=== PATIENT | female | born 1965 | race Caucasian/White ===

== ENCOUNTER 2020-01-07 07:59 | Outpatient (REF) | payer BC, SELFPAY ==
--- NOTE | 2020-01-07 | US_ITS ---
EXAMINATION: US RETROPERITONEAL LIMITED (RENAL ONLY) CLINICAL INFORMATION: Kidney stones. COMPARISON: 05/02/2019 TECHNIQUE: Renal ultrasound. FINDINGS: RIGHT KIDNEY: 12.3 x 5.4 x 6.2 cm (SAG x AP x TRV). The kidney is normal in size, contour, and echogenicity. Renal cortical thickness is normal. No calculi or focal parenchymal lesions. No hydronephrosis. LEFT KIDNEY: 12.4 x 4.1 x 4.4 cm (SAG x AP x TRV). The kidney is normal in size, contour, and echogenicity. Renal cortical thickness is normal. There is a lower pole 3 x 2 x 3 mm nonobstructing calculus. No focal parenchymal lesions. No hydronephrosis. US/US renal BI IMPRESSION: Left renal 3 mm nonobstructing calculus. No right renal calculi. No hydronephrosis.
== END 2020-01-07 08:00 | disposition home or self-care (01) ==
LOC: HO.HMGCX 07:59
PROVIDERS: PCP Internal Medicine; Visit Provider Urology
DX: N20.0 Calculus of kidney (principal)
CPT/HCPCS: 76775

== ENCOUNTER 2020-01-27 06:04 | Outpatient (REF) | payer BC, SELFPAY ==
[2020-01-27 11:51] LABS: MANUAL DIFF FLAG NO
[2020-01-27 11:58] LABS: Basophils Percent Auto 0.4 % (0-2); Eosinophils Absolute Auto 0.2 X10*3/uL (0.0-0.4); Eosinophils Percent Auto 2.5 % (0-4); Hematocrit 43.9 % (37-47); Hemoglobin 14.4 g/dl (12.0-16.0); Imm Gran Abs Auto 0.02 X10*3/uL (0.00-0.03); Imm Gran Pct Auto 0.3 % (0.0-0.4); Lymphocytes Absolute Auto 2.2 X10*3/uL (1.2-4.9); Lymphocytes Percent Auto 28.4 % (20-40); Mean Corpuscular HGB Conc 32.8 g/dl (31.0-35.0); Mean Corpuscular Hemoglobin 28.5 pg (27.0-33.0); Mean Corpuscular Volume 86.9 fL (80-98); Mean Platelet Volume 10.1 fL (9.4-12.3); Monocytes Absolute Auto 0.5 X10*3/uL (0.1-1.2); Monocytes Percent Auto 7.1 % (2-11); Neutrophils Absolute Auto 4.7 X10*3/uL (2.0-8.3); Neutrophils Percent Auto 61.3 % (45-73); Platelet Count 357 X10*3/uL (160-400); Red Blood Count 5.05 X10*6/uL (4.20-5.50); Red Cell Distribution Width 13.7 % (11.0-16.0); White Blood Count 7.6 X10*3/uL (4.8-10.8)
[2020-01-27 12:25] LABS: Alanine Aminotransferase 48 U/L (0-31); Albumin Level 4.1 g/dL (3.5-5.0); Alkaline Phosphatase 155 U/L (39-117); Anion Gap 15 (12-20); Aspartate Amino Transferase 36 U/L (5-31); Bilirubin Total 0.5 mg/dL (0.0-1.0); Blood Urea Nitrogen 19 mg/dL (9-16); Calcium 9.1 mg/dL (8.4-10.2); Carbon Dioxide 25 mmol/L (22-29); Chloride 107 mmol/L (96-108); Cholesterol 222 mg/dL; Estimated Glomerular Filt Rate > 60; Glucose Fasting 105 mg/dL (60-99); HDL Cholesterol 34 mg/dL; LDL Cholesterol Calculated 146 mg/dl; Potassium 4.6 mmol/l (3.3-5.1); Sodium 142 mmol/L (135-145); Total Protein 7.1 g/dL (6.5-8.0); Triglycerides 212 mg/dL
[2020-01-27 12:49] LABS: TSH reflex Free T4 3.56 mIU/mL (0.32-4.0)
== END 2020-01-27 06:05 | disposition home or self-care (01) ==
LOC: HO.HMGCLDS 06:04
PROVIDERS: PCP Internal Medicine; Visit Provider Internal Medicine
DX: F33.9 Major depressive disorder, recurrent, unspecified (principal); E78.89 Other lipoprotein metabolism disorders; K21.9 Gastro-esophageal reflux disease without esophagitis; R94.5 Abnormal results of liver function studies
CPT/HCPCS: 36415; 80053; 80061; 84443; 85025

== ENCOUNTER → 2020-02-23 09:17 | Outpatient (BNVA) | payer BC, SELFPAY | PROVIDERS: PCP Internal Medicine; Visit Provider Urology | DX: Z13.89 Encounter for screening for other disorder (principal) ==

== ENCOUNTER 2020-04-14 08:12 | Outpatient (REF) | payer BC, SELFPAY ==
--- NOTE | ~2020-04-14 | US_ITS ---
EXAMINATION: US ABDOMEN COMPLETE CLINICAL INFORMATION: Right upper quadrant pain. COMPARISON: Renal ultrasound 01/07/2020 and 05/02/2019. KUB 04/16/2019 and 01/15/2019. TECHNIQUE: Real-time imaging of the abdominal viscera. FINDINGS: PANCREAS: Normal. ABDOMINAL AORTA: The proximal, mid, and distal segments are normal in caliber. INFERIOR VENA CAVA: Visualized portions are normal. LIVER: Liver echotexture is increased probably representing fatty infiltration. There is a hypoechoic area adjacent to the gallbladder, characteristic location of focal fatty sparing. No other focal liver lesion is seen. The liver is normal in size and contour. There is no biliary duct dilatation. GALLBLADDER: Normal. The gallbladder is physiologically distended without evidence of stones, sludge, polyps, wall thickening or pericholecystic fluid. COMMON BILE DUCT: Normal in caliber measuring 0.4 cm in diameter. RIGHT KIDNEY: Normal. No hydronephrosis. No renal calculi or focal parenchymal lesions. The kidney measures 11.3 cm in maximum dimension. LEFT KIDNEY: Normal. No hydronephrosis. No renal calculi or focal parenchymal lesions. The kidney measures 11.6 cm in maximum dimension. The previously identified left renal stones on previous exams not appreciated. SPLEEN: Normal. The spleen measures 11.0 cm in maximum dimension. FREE FLUID: None. US/US abdomen complete IMPRESSION: Echogenic liver probably representing fatty infiltration. Otherwise unremarkable exam.
== END 2020-04-14 08:13 | disposition home or self-care (01) ==
LOC: HO.HMGCX 08:12
PROVIDERS: PCP Internal Medicine; Visit Provider Internal Medicine
DX: R10.11 Right upper quadrant pain (principal); K21.9 Gastro-esophageal reflux disease without esophagitis; R79.89 Other specified abnormal findings of blood chemistry
CPT/HCPCS: 76700

== ENCOUNTER 2020-08-25 09:13 | Outpatient (REF) | payer BC, SELFPAY ==
[2020-08-25 11:15] LABS: MANUAL DIFF FLAG NO
[2020-08-25 11:43] LABS: Basophils Percent Auto 0.4 % (0-2); Eosinophils Absolute Auto 0.2 X10*3/uL (0.0-0.4); Hematocrit 44.8 % (37-47); Hemoglobin 14.8 g/dl (12.0-16.0); Imm Gran Abs Auto 0.01 X10*3/uL (0.00-0.03); Imm Gran Pct Auto 0.1 % (0.0-0.4); Lymphocytes Absolute Auto 2.1 X10*3/uL (1.2-4.9); Lymphocytes Percent Auto 25.2 % (20-40); Mean Corpuscular Hemoglobin 28.2 pg (27.0-33.0); Mean Corpuscular Volume 85.3 fL (80-98); Mean Platelet Volume 9.9 fL (9.4-12.3); Monocytes Absolute Auto 0.7 X10*3/uL (0.1-1.2); Neutrophils Absolute Auto 5.3 X10*3/uL (2.0-8.3); Neutrophils Percent Auto 64.3 % (45-73); Platelet Count 413 X10*3/uL (160-400); Red Blood Count 5.25 X10*6/uL (4.20-5.50); Red Cell Distribution Width 13.2 % (11.0-16.0); White Blood Count 8.2 X10*3/uL (4.8-10.8)
[2020-08-25 11:51] LABS: Alanine Aminotransferase 34 U/L (0-31); Albumin Level 4.4 g/dL (3.5-5.0); Alkaline Phosphatase 183 U/L (39-117); Anion Gap 13 (12-20); Aspartate Amino Transferase 29 U/L (5-31); Bilirubin Total 0.3 mg/dL (0.0-1.0); Blood Urea Nitrogen 18 mg/dL (9-16); Calcium 9.9 mg/dL (8.4-10.2); Carbon Dioxide 25 mmol/L (22-29); Chloride 108 mmol/L (96-108); Estimated Glomerular Filt Rate > 60; Glucose Random 110 mg/dL (60-115); Potassium 4.9 mmol/L (3.3-5.1); Sodium 141 mmol/L (135-145); Total Protein 7.5 g/dL (6.5-8.0)
[2020-08-25 12:17] LABS: TSH reflex Free T4 1.72 uIU/mL (0.32-4.0)
[2020-08-25 13:05] LABS: Estimated Average Glucose 117 mg/dL; Hemoglobin A1c % 5.7 %
== END 2020-08-25 09:14 | disposition home or self-care (01) ==
LOC: HO.HMGCLDS 09:13
PROVIDERS: PCP Internal Medicine; Visit Provider Internal Medicine
DX: F33.9 Major depressive disorder, recurrent, unspecified (principal); I10 Essential (primary) hypertension; R73.03 Prediabetes; R79.89 Other specified abnormal findings of blood chemistry; K21.9 Gastro-esophageal reflux disease without esophagitis
CPT/HCPCS: 36415; 80053; 83036; 84443; 85025

== ENCOUNTER 2020-09-29 07:24 | Outpatient (REF) | payer BC, SELFPAY ==
--- NOTE | ~2020-09-29 | MM_ITS ---
EXAMINATION: MM SCREENING DIGITAL BREAST TOMOSYNTHESIS, BILATERAL CLINICAL INFORMATION: Screening. Asymptomatic. The lifetime risk of breast cancer based on the Tyrer-Cuzick Model is 10%. COMPARISON: Mammography: 09/23/2019, 01/11/2019, 03/17/2017 TECHNIQUE: Digital breast tomosynthesis is performed in both the craniocaudal and mediolateral oblique views along with computer-aided detection (CAD). Synthesized 2D images are generated from the tomosynthesis. FINDINGS: There are scattered areas of fibroglandular density (ACR BI-RADS breast composition Category b). There are no significant masses, abnormal calcifications, or other abnormalities. Parenchymal tissue composition borders on heterogeneously dense. Parenchymal pattern is similar to prior exams. No developing density. No significant changes. MM/MM tomosynthesis screening BI IMPRESSION: No mammographic evidence of malignancy. ASSESSMENT: BI-RADS 1: Negative RECOMMENDATION: Routine annual mammography screening. This patient's information was entered into a reminder system with a target due date for their next mammogram.
== END 2020-09-29 07:25 | disposition home or self-care (01) ==
LOC: HO.MAMMO 07:24
PROVIDERS: Visit Provider Internal Medicine
DX: Z12.31 Encounter for screening mammogram for malignant neoplasm of breast (principal)
CPT/HCPCS: 77063; 77067

== ENCOUNTER 2021-04-20 08:46 | Outpatient (REF) | payer BC, SELFPAY ==
[2021-04-20 11:33] LABS: Alanine Aminotransferase 21 U/L (0-31); Albumin Level 4.2 g/dL (3.5-5.0); Alkaline Phosphatase 148 U/L (39-117); Anion Gap 15 (12-20); Aspartate Amino Transferase 22 U/L (5-31); Bilirubin Total 0.4 mg/dL (0.0-1.0); Blood Urea Nitrogen 12 mg/dL (9-16); Carbon Dioxide 23 mmol/L (22-29); Chloride 106 mmol/L (96-108); Estimated Glomerular Filt Rate > 60; Glucose Random 99 mg/dL (60-115); Potassium 4.6 mmol/L (3.3-5.1); Sodium 139 mmol/L (135-145); Total Protein 7.2 g/dL (6.5-8.0)
== END 2021-04-20 08:47 | disposition home or self-care (01) ==
LOC: HO.HMGCLDS 08:46
PROVIDERS: Visit Provider Internal Medicine
DX: F33.9 Major depressive disorder, recurrent, unspecified (principal); I10 Essential (primary) hypertension; K21.9 Gastro-esophageal reflux disease without esophagitis; R73.03 Prediabetes; R79.89 Other specified abnormal findings of blood chemistry; E66.09 Other obesity due to excess calories
CPT/HCPCS: 36415; 80053

== ENCOUNTER 2021-05-04 14:13 | Outpatient (REF) | payer BC, SELFPAY ==
[2021-05-09 14:17] LABS: HPV mRNA E6/E7 rflx Not Detected (Not Detected)
== END 2021-05-04 14:14 | disposition home or self-care (01) ==
LOC: HO.LAB 14:13
PROVIDERS: PCP Internal Medicine; Visit Provider Advanced Practice Midwife
DX: Z01.411 Encounter for gynecological examination (general) (routine) with abnormal findings (principal); Z11.51 Encounter for screening for human papillomavirus (HPV); N95.1 Menopausal and female climacteric states
CPT/HCPCS: 87624; 88142

== ENCOUNTER 2021-10-03 07:21 | Outpatient (REF) | payer BC, SELFPAY ==
--- NOTE | ~2021-10-03 | MM_ITS ---
EXAMINATION: MM SCREENING DIGITAL BREAST TOMOSYNTHESIS, BILATERAL CLINICAL INFORMATION: Screening. Asymptomatic. The lifetime risk of breast cancer based on the Tyrer-Cuzick Model is 10%. COMPARISON: Mammography: 09/29/2020, 09/23/2019, 06/11/2018, 03/03/2017 TECHNIQUE: Digital breast tomosynthesis is performed in both the craniocaudal and mediolateral oblique views along with computer-aided detection (CAD). Synthesized 2D images are generated from the tomosynthesis. FINDINGS: There are scattered areas of fibroglandular density (ACR BI-RADS breast composition Category b). There are no significant masses, abnormal calcifications, or other abnormalities. No developing density or architectural abnormality. Breast tissue composition borders on heterogeneously dense. The axilla are unremarkable. No significant changes. MM/MM tomosynthesis screening BI IMPRESSION: No mammographic evidence of malignancy. ASSESSMENT: BI-RADS 1: Negative RECOMMENDATION: Routine annual mammography screening. This patient's information was entered into a reminder system with a target due date for their next mammogram.
== END 2021-10-03 07:22 | disposition home or self-care (01) ==
LOC: HO.MAMMO 07:21
PROVIDERS: PCP Internal Medicine; Visit Provider Internal Medicine
DX: Z12.31 Encounter for screening mammogram for malignant neoplasm of breast (principal)
CPT/HCPCS: 77063; 77067

== ENCOUNTER 2021-10-06 06:00 | Outpatient (REF) | payer BC, SELFPAY ==
[2021-10-06 11:33] LABS: MANUAL DIFF FLAG NO
[2021-10-06 11:46] LABS: Basophils Absolute Auto 0.1 X10*3/uL (0.0-0.2); Basophils Percent Auto 0.9 % (0-2); Eosinophils Absolute Auto 0.4 X10*3/uL (0.0-0.4); Eosinophils Percent Auto 8.1 % (0-4); Hematocrit 40.8 % (37.0-47.0); Hemoglobin 13.3 g/dl (12.0-16.0); Imm Gran Abs Auto 0.01 X10*3/uL (0.00-0.03); Imm Gran Pct Auto 0.2 % (0.0-0.4); Lymphocytes Absolute Auto 1.4 X10*3/uL (1.2-4.9); Lymphocytes Percent Auto 25.2 % (20-40); Mean Corpuscular HGB Conc 32.6 g/dl (31.0-35.0); Mean Corpuscular Hemoglobin 28.4 pg (27.0-33.0); Mean Corpuscular Volume 87.2 fL (80.0-98.0); Mean Platelet Volume 10.4 fL (9.4-12.3); Monocytes Absolute Auto 0.6 X10*3/uL (0.1-1.2); Monocytes Percent Auto 10.3 % (2-11); Neutrophils Percent Auto 55.3 % (45-73); Platelet Count 383 X10*3/uL (160-400); Red Blood Count 4.68 X10*6/uL (4.20-5.50); Red Cell Distribution Width 15.2 % (11.0-16.0); White Blood Count 5.4 X10*3/uL (4.8-10.8)
[2021-10-06 11:51] LABS: Appearance Urine CLOUDY; Color Urine YELLOW; Glucose Urine UA NEG (NEG); Leukocyte Esterase Urine TRACE (NEG); Nitrite Urine NEG (NEG); Specific Gravity - Urine 1.025 (1.005-1.025); Urine Blood NEG (NEG); Urine Ketones 5 MG/DL (NEG); Urine Protein NEG (NEG-TRACE)
[2021-10-06 12:11] LABS: Amorphous Sediment Urine 4+ /LPF; Squamous Epithelial Cell Urine TRACE /LPF
[2021-10-06 12:13] LABS: Calcium Oxalate Crystals Urine TRACE /LPF; Uric Acid Crystals Urine 1+ /LPF
[2021-10-06 12:14] LABS: RBC Urine 0 /HPF (0); WBC Urine 0-2 /HPF (0-4)
[2021-10-06 12:34] LABS: Alanine Aminotransferase 22 U/L (0-31); Albumin Level 3.9 g/dL (3.5-5.0); Alkaline Phosphatase 94 U/L (39-117); Anion Gap 15 (12-20); Aspartate Amino Transferase 26 U/L (5-31); Bilirubin Total 0.4 mg/dL (0.0-1.0); Blood Urea Nitrogen 10 mg/dL (9-16); Calcium 9.5 mg/dL (8.4-10.2); Carbon Dioxide 22 mmol/L (22-29); Chloride 110 mmol/L (96-108); Cholesterol 194 mg/dL; Estimated Glomerular Filt Rate > 60; Glucose Fasting 96 mg/dL (60-99); HDL Cholesterol 35 mg/dL; LDL Cholesterol Calculated 136 mg/dl; Potassium 4.4 mmol/L (3.3-5.1); Sodium 143 mmol/L (135-145); Total Protein 6.2 g/dL (6.5-8.0); Triglycerides 115 mg/dL
== END 2021-10-06 06:01 | disposition home or self-care (01) ==
LOC: HO.HMGCLDS 06:00
PROVIDERS: PCP Internal Medicine; Visit Provider Internal Medicine
DX: Z00.01 Encounter for general adult medical examination with abnormal findings (principal); F33.9 Major depressive disorder, recurrent, unspecified; R79.89 Other specified abnormal findings of blood chemistry
CPT/HCPCS: 36415; 80053; 80061; 81001; 85025

== ENCOUNTER → 2022-06-13 07:57 | Outpatient (BNVA) | payer BC, SELFPAY | PROVIDERS: PCP Internal Medicine; Visit Provider Advanced Practice Midwife | DX: Z13.89 Encounter for screening for other disorder (principal) ==

== ENCOUNTER 2023-01-17 14:19 | Outpatient (AMB) | payer BC, SELFPAY ==
--- NOTE | 2023-01-17 14:26 | A.OFFPC_ITS ---
Vital Signs 01/17/23 14:27 Height 5 ft 7 in Weight 165 lb 8 oz BMI 25.9 BP 110/88 Blood Pressure Location Rt brachial Position Sitting Pulse 79 Pulse Source Pulse Oximeter Pulse Oximetry (%) 97 Oxygen Delivery Method Room Air Intake Visit Reasons: Hip Replacement Surgery F/U Allergies No Known Allergies [No Known Allergies*] Allergy (Verified 01/17/23 14:27) seasonal allergies Allergy (Unknown, Uncoded 04/20/21 08:17) unknown Medication List - Last Reconciled 01/17/23 by Hailey Moran MD albuterol sulfate 90 mcg/actuation 1 puff inhalation citalopram 40 mg PO DAILY 90 days fluocinonide 0.05% mL topical Tobacco use date assessed: 01/17/23 Dental Screening Dental Screen Date: 01/17/23 Did you have a dental visit in the last 12 months?: Yes Did you have a dental problem in the last 6 months where you did not have access to dental care?: No Was dental information given to patient?: Patient has dentist HPI Hip Replacement Surgery F/U HPI Details Status post left hip replacement July 2022 and right hip replacement September [address] Michael Marion Patient have history of bilateral knee pain, bilateral shoulder pain as well History of anxiety and major depression , taking citalopram 40 mg History of impaired fasting sugar, last hemoglobin A1c was 5.1 in-hospital Environmental allergies, asthma controlled, rarely require rescue inhaler Patient had sleep apnea, resolved since she has lost weight GERD, diet-controlled Patient is doing well after the hip surgery She will return in May for physical exam [facility] Medical History Cataract Foreign body of right index finger Abdominal pain, RUQ LFT elevation Prediabetes Renal stone Ureteral stone Kidney stones Surgical History H/O eye surgery History of tonsillectomy Family History Father No problems noted. Mother No problems noted. Brother No problems noted. Brother No problems noted. Daughter No problems noted. Unknown Adopted Housing: House Patient Tobacco Use Status: Former Tobacco user Quit Date: 1989 Tobacco use type: Cigarette Cigarette Packs Per Day: 1 Years Smoked: 10 Packs Per Year: 10 e-Cigarette/Vaping Use: Never Used Current occupational status: employed Sexual orientation: Straight/Heterosexual Gender identity: Female Cognitive needs: No Hearing needs: No Vision needs: No Questionnaire Thrive Questionnaire Date Thrive assessed: 10/04/21 AUDIT C Alcohol Use Questionnaire (AUDIT-C) 1. How often do you have a drink containing alcohol?: Never 3. How often do you have six or more drinks on one occasion?: Never Total Score: 0 Score Reviewed/Action Taken: Yes NANETTE-7 AMB Questionnaire NANETTE-7 Date NANETTE - 7 assessed: 10/04/21 Source: Developed by Drs. Julian Pal, Wanda Valenzuela, Donnie Ibanez and colleagues, with an educational arvin from [employer]. Review of Systems Const Denies chills and Denies fever(s) ENT Denies epistaxis and Denies nasal discharge Card Denies chest pain Resp Denies chest congestion, Denies cough and Denies hemoptysis GI Denies diarrhea and Denies nausea Skin/Breast Denies rash Neuro Reports no additional complaints Psych Reports no additional complaints Endo Reports no additional complaints Physical exam (Primary Care) Vital Signs: Last Vital Signs Pulse 79 01/17/23 14:27 BP 110/88 01/17/23 14:27 Pulse Ox 97 01/17/23 14:27 Oxygen Delivery Method Room Air 01/17/23 14:27 BMI result Body Mass Index 25.9 Tobacco/Smoking Status: Tobacco use Status Tobacco use date assessed 01/17/23 01/17/23 14:32 Patient Tobacco Use Status Former Tobacco user 01/17/23 14:32 Tobacco use type Cigarette 01/17/23 14:32 e-Cigarette/Vaping Use Never Used 01/17/23 14:32 Thrive Assessment: Date of Thrive Assessment Date Thrive assessed 10/04/21 01/17/23 14:32 Const General: cooperative, comfortable and no acute distress Orientation/consciousness: patient oriented x3 HENMT Head: Yes normocephalic Eyes General: appearance normal, both eyes and all related structures Neck Neck: Yes supple Resp Effort & Inspection: normal respiratory effort, no cough and no stridor Cardio Rhythm: regular rhythm Heart sounds: S1 normal heart sound present and S2 normal heart sound present Skin General skin exam: turgor normal Neuro General: patient oriented x3, tone normal and moves all extremities Extrem Right lower extremity: no edema Left lower extremity: no edema Assessment and Plan Assessment & Plan (1) Depression, major, recurrent: Code(s): F33.9 - Major depressive disorder, recurrent, unspecified Qualifiers: Active/Remission status: in full remission Qualified Code(s): F33.42 - Major depressive disorder, recurrent, in full remission Plan Status post left hip replacement July 2022 and right hip replacement September [address] Michael Marion Patient have history of bilateral knee pain, bilateral shoulder pain as well History of anxiety and major depression , taking citalopram 40 mg History of impaired fasting sugar, last hemoglobin A1c was 5.1 in-hospital Environmental allergies, asthma controlled, rarely require rescue inhaler Patient had sleep apnea, resolved since she has lost weight GERD, diet-controlled Patient is doing well after the hip surgery She will return in May for physical exam Medications: Refilled citalopram 40 mg PO DAILY 90 tabs 1RF 90 days F33.9 - Major depressive disorder, recurrent, unspecified Coding Level of Care Code Est Pt Level 3 (89032) Diagnoses Recurrent major depressive disorder, in full remission F33.42 Active/Remission status: in full remission
[2023-01-17 14:27] VITALS: BP 110/88; PULSE 79; O2SAT 97; BMI 25.9
== END 2023-01-17 15:14 | disposition home or self-care (01) ==
PROVIDERS: PCP Internal Medicine; Visit Provider Internal Medicine
DX: F33.42 Major depressive disorder, recurrent, in full remission (principal)
CPT/HCPCS: 99213

== ENCOUNTER 2023-04-17 06:20 | Day surgery (SDC) | payer BC, SELFPAY ==
[2023-04-12 07:59] VITALS: BMI 26.2
[2023-04-17 06:53] VITALS: BMI 26.6
[2023-04-17 07:01] VITALS: BP 111/74; PULSE 71; RESP 16; TEMP 36.8; O2SAT 97
[2023-04-17] MEDS: Lactated Ringers 1,000 ML 80 ML IVCONT (07:10)
--- NOTE | 2023-04-17 07:11 | P.CONAN_ITS ---
[facility] Active Problems Active Problems: All Active Problems (Updated 04/12/23 @ 07:58 by Francisca Hsu, RN) Pre-op evaluation (Acute) Encounter for general adult medical examination with abnormal findings (Acute) Obesity due to excess calories (Acute) High blood pressure (Acute) Chronic GERD (Acute) Depression, major, recurrent (Acute) Cataract (Acute) Foreign body of right index finger (Acute) Abdominal pain, RUQ (Acute) LFT elevation (Acute) Prediabetes (Acute) Renal stone (Acute) Past Medical History Medical History (Updated 04/12/23 @ 07:58 by Francisca Hsu, RN) Sleep apnea Anxiety Elevated cholesterol Depression GERD (gastroesophageal reflux disease) Cataract Foreign body of right index finger Abdominal pain, RUQ LFT elevation Prediabetes Renal stone Ureteral stone Kidney stones Family History Family History Father No problems noted. Mother No problems noted. Brother No problems noted. Brother No problems noted. Daughter No problems noted. Unknown Adopted Family history of problems with anesthesia: No Surgical History Surgical History (Updated 04/12/23 @ 07:57 by Francisca Hsu RN) History of right hip replacement History of left hip replacement Hx of shoulder surgery Hx of unilateral salpingectomy History of left oophorectomy H/O eye surgery History of tonsillectomy History of Problems with Anesthesia: No Social History Social History Housing: House Patient Tobacco Use Status: Former Tobacco user Quit Date: 1989 Tobacco use type: Cigarette Cigarette Packs Per Day: 1 Years Smoked: 10 e-Cigarette/Vaping Use: Never Used Use of substances other than those prescribed or required for medical reasons: No Are you DNR?: No Advance Directives: No Advance Directives Information Provided: Yes Current occupational status: employed Sexual orientation: Straight/Heterosexual Gender identity: Female Cognitive needs: No Hearing needs: No Vision needs: No Meds Allergies Allergy/AdvReac Type Severity Reaction Status Date / Time No Known Allergies Allergy Verified 01/17/23 14:27 [No Known Allergies*] seasonal allergies Allergy Unknown unknown Uncoded 04/20/21 08:17 Home Medications Medication Instructions Recorded Confirmed Last Taken Type albuterol sulfate 90 mcg/actuation 1 puff inhalation 02/24/20 01/17/23 Unknown History aerosol inhaler aspirin 81 mg tablet,delayed 81 mg PO DAILY 04/12/23 04/12/23 Unknown History release celecoxib 200 mg capsule 200 mg PO DAILY 04/12/23 04/12/23 Unknown History docusate sodium 100 mg capsule 100 mg PO DAILY PRN Constipation 04/12/23 04/12/23 Unknown History hydrocodone 5 mg-acetaminophen 325 1 tab PO Q6-8H PRN severe pain 04/12/23 04/12/23 Unknown History mg tablet ketoconazole 2 % shampoo 1 appl topical 2XW 04/12/23 04/12/23 Unknown History pantoprazole 40 mg tablet,delayed 40 mg PO DAILY 04/12/23 04/12/23 Unknown History release tramadol 50 mg tablet 50 - 100 mg PO DAILY PRN mild pain 04/12/23 04/12/23 Unknown History Exam Height,Weight and Vital Signs: Height 5 ft 6.5 in Weight 75.92 kg Last Vital Signs Temp 98.2 F 04/17/23 07:01 Pulse 71 04/17/23 07:01 Resp 16 04/17/23 07:01 BP 111/74 04/17/23 07:01 Pulse Ox 97 04/17/23 07:01 O2 Del Method Room Air 04/17/23 07:01 Airway Mallampati Class: II TM Dist: >3cm Neck ROM: Full Assessment and Plan Assessment Anesthesia Assessment: Anesthesia Plan Discussed and Chart Reviewed Final Anesthetic Review Family History of Problems with Anesthesia: No History of Problems with Anesthesia: No NPO: Yes ASA Class: II Final Preanesthetic Review: No Changes in Pt Med Stat, Meds/Allgs Chart Reviewed, Consent Obtained/Reviewed and Anes Risks/Benef Reviewed Patient Risk: Low Procedure Risk: Low Anesthetic Plan Anesthetic Plan: TIVA Disposition: Standard PACU
--- NOTE | 2023-04-17 07:17 | PC.NURSE ---
patient unknown of output of stool color. laid on left lateral side and attemtped to insert an enema and unable to administer the enema. it would not admin. ?fleet enema bottle defective.
--- NOTE | 2023-04-17 07:30 | PC.NURSE ---
left lateral fleet. nessa well. enema performed. dark yellow output. no solids
--- NOTE | 2023-04-17 07:30 | MHC.SHP ---
Pre-Procedural Eval Section A - 24 Hr Update-Section A only Date of Service: 04/17/23 Section B - Complete if H&P > 30 days Chief Complaint: screening Details of Present Illness: see H&P no changes Relevant Family History (Specify if Yes): No Relevant Social History: None Present Medications: see Short Stay Collaborative assessment Medical History: No relevant PMH Allergies: Allergies Allergy/AdvReac Type Severity Reaction Status Date / Time No Known Allergies Allergy Verified 01/17/23 14:27 [No Known Allergies*] seasonal allergies Allergy Unknown unknown Uncoded 04/20/21 08:17 Review of Systems Sugical H&P ROS: Negative: Constitution, Cardiovascular, Respiratory, Neurological, Psychiatric, Hem-Onc, Allergic/Immunologic, Gastrointestinal, Genitourinary, Musculoskeletal, Integumentary, Endocrine and Eyes/Ears/Nose/Throat Exam Surgical H&P Exam: Normal: HEENT, Normal: Heart, Normal: Lungs, Normal: Extremities, Normal: Abdomen, Normal: Skin and Normal: Neurological Plan Diagnosis/Plan: Unchanged I have reviewed the history and physical and performed a pertinent physical examination on my patient. No changes have occurred unless specified. Time Spent With Patient Time: Total time managing care of this patient today ____ minutes.
[2023-04-17 08:07] VITALS: BP 96/50; PULSE 68; RESP 16; TEMP 36.5; O2SAT 98
[2023-04-17 08:22] VITALS: BP 105/68; PULSE 68; RESP 20; TEMP 36.4; O2SAT 97
--- NOTE | 2023-04-17 08:26 | OP_ITS ---
DATE OF SERVICE: 04/17/2023 SURGEON: Anshul Medina MD INDICATIONS: Colon cancer screening and previous history of colon polyps. PREOPERATIVE DIAGNOSIS: POSTOPERATIVE DIAGNOSIS: PROCEDURE PERFORMED: Colonoscopy to the terminal ileum with snare polypectomy. ESTIMATED BLOOD LOSS: COMPLICATIONS: ANESTHESIA: Monitored anesthesia care. ASSISTANTS: SPECIMENS: DESCRIPTION OF PROCEDURE: A history and physical was performed. The risks and benefits of the procedure were explained to the patient. Informed consent was obtained. The patient was placed in the left lateral decubitus position. A digital rectal exam was performed and was found to be normal. The Olympus pediatric video colonoscope was introduced into the rectum and advanced to the cecum. The cecum was identified by transillumination, palpation, and identification of ileocecal valve. Examination was performed. The scope was removed. She tolerated the procedure well and was returned to recovery area in stable condition. FINDINGS: The terminal ileum was examined and appeared normal. The visualized colonic mucosa was normal. The quality of the prep was good. A single polyp measuring approximately 6 mm were identified and removed with a cold snare at 55 cm. The polyp was recovered via suction. There was moderate sigmoid diverticulosis. Retroflexed examination was normal. IMPRESSION: Colon polyp. RECOMMENDATION: Follow up the biopsy results. MD NICHOLAS Young/RAISSAL / [id number]
== END 2023-04-17 08:51 | disposition home or self-care (01) ==
PROVIDERS: PCP Internal Medicine; Visit Provider Internal Medicine Gastroenterology
PROC: 0DJD8ZZ Inspection of Lower Intestinal Tract, Via Natural or Artificial Opening Endoscopic (ICD-10-PCS; CPT 45378; principal; 2023-04-17 07:30)
DX: Z12.11 Encounter for screening for malignant neoplasm of colon (principal); Z86.010 Personal history of colon polyps; D12.5 Benign neoplasm of sigmoid colon; K57.30 Diverticulosis of large intestine without perforation or abscess without bleeding; K21.9 Gastro-esophageal reflux disease without esophagitis; E78.00 Pure hypercholesterolemia, unspecified; F32.A Depression, unspecified; Z79.82 Long term (current) use of aspirin; Z79.899 Other long term (current) drug therapy; Z98.890 Other specified postprocedural states; Z87.891 Personal history of nicotine dependence
CPT/HCPCS: 45385; 88305; J2704

== ENCOUNTER 2023-05-14 08:01 | Outpatient (AMB) | payer BC, SELFPAY ==
[2023-05-14 08:11] VITALS: BP 110/60; PULSE 67; TEMP 37.1; O2SAT 98; BMI 26.3
--- NOTE | 2023-05-14 08:11 | AM.OFFWIN_ITS ---
Intake Vital Signs 05/14/23 08:11 Height 5 ft 6.5 in Weight 165 lb 4 oz BMI 26.3 BP 110/60 Blood Pressure Location Rt brachial Position Sitting Pulse 67 Pulse Source Pulse Oximeter Temp 98.8 F Temp Source Oral Pulse Oximetry (%) 98 Intake Visit Reasons: EP Sore Throat, Eyes, ?Laryngitis Intake Note: pt is here for c/o eye irritation, laryngitis Patient Tobacco Use Status: Former Tobacco user Quit Date: 1989 Allergies No Known Allergies [No Known Allergies*] Allergy (Verified 05/14/23 08:11) seasonal allergies Allergy (Unknown, Uncoded 04/20/21 08:17) unknown Do you need a note to return to daycare/school/sports/work: Yes HPI HPI Comments History of Present Illness Details presents to the walkin today for sick visit Complaining sinus congestion eye irritation right worse than left and laryngitis Concerned about eye irritation that started 2 days ago. Patient states right eye was crusted shut when she awoke this morning. Denies pain to the eye, denies vision changes, headache. Patient denies pain with eye movement. Denies trauma to the eye or foreign body sensation. [facility] Medical History (Updated 05/14/23 @ 08:40 by Sanam Reddy APRN, [employer]ING MACHINE [employer]ER) Sleep apnea Anxiety Elevated cholesterol Depression GERD (gastroesophageal reflux disease) Cataract Foreign body of right index finger Abdominal pain, RUQ LFT elevation Prediabetes Renal stone Ureteral stone Kidney stones Surgical History (Updated 04/12/23 @ 07:57 by Francisca Hsu RN) History of right hip replacement History of left hip replacement Hx of shoulder surgery Hx of unilateral salpingectomy History of left oophorectomy H/O eye surgery History of tonsillectomy Family History Father No problems noted. Mother No problems noted. Brother No problems noted. Brother No problems noted. Daughter No problems noted. Unknown Adopted Social History Housing: House Patient Tobacco Use Status: Former Tobacco user Quit Date: 1989 Tobacco use type: Cigarette Cigarette Packs Per Day: 1 Years Smoked: 10 e-Cigarette/Vaping Use: Never Used Current occupational status: employed Sexual orientation: Straight/Heterosexual Gender identity: Female Cognitive needs: No Hearing needs: No Vision needs: No Review of Systems Const All systems reviewed & are unremarkable except as noted in HPI and below Physical Exam Vital Signs: Last Vital Signs Temp 98.8 F 05/14/23 08:11 Pulse 67 05/14/23 08:11 BP 110/60 05/14/23 08:11 Pulse Ox 98 05/14/23 08:11 BMI result Body Mass Index 26.3 General: awake, alert, oriented. Answers questions appropriately. Fully engaged in examination. Skin: warm, dry, intact HEENT: Normocephalic. Hearing intact. Right eye: + mucoid discharge, conjunctival injection. Left eye conjunctival injection without discharge. Posterior pharynx without erythema or exudate Cardiac: External chest normal in appearance. Respiratory: No cough, audible wheezing or stridor. Abdomen: without gross distension. MS: No obvious swelling or deformities. Neurological: Oriented to person, place, time and situation. Thought process intact. Psychiatric: Appropriate mood and affect. Good judgment and insight. Results AMB Rapid Strep AMB Rapid Strep Negative Last Edit by Jabier Meza CMA on 05/14/23 08 :27 Results Reviewed Results Reviewed: Laboratory Last Values Strep Scn Rapid Clinic Negative 05/14/23 08:26 Assessment & Plan Assessment & Plan (1) Conjunctivitis: Code(s): H10.9 - Unspecified conjunctivitis (2) URI (upper respiratory infection): Code(s): J06.9 - Acute upper respiratory infection, unspecified Plan URI, right eye conjunctivitis Rapid strep negative +mucoid discharge and conjunctival injection noted to right eye consistent with conjunctivitis. ABX drops, 1 drop to both eyes four times daily. Avoid touching, rubbing the eyes. Do not use same area of facecloth to clean both eyes. Wash hands often. Rest, drink plenty of fluids, tylenol or motrin as needed. All questions and concerns were answered during the visit. Patient agrees with the plan. Follow up with pcp or return to walkin for any new or worsening symptoms. Orders: Orders AMB Rapid Strep Screen Today Z13.9 - Encounter for screening, unspecified Medications: New polymyxin B sulf-trimethoprim 10,000 unit- 1 mg/mL while awake; do not exceed 6 doses in 24 hours 1 drp ophthalmic (eye) QID 7 days 10 mL 0RF Coding Level of Care Code Est Pt Level 3 (23059) Diagnoses Conjunctivitis H10.9 URI (upper respiratory infection) J06.9
== END 2023-05-14 09:02 | disposition home or self-care (01) ==
PROVIDERS: PCP Internal Medicine; Visit Provider Registered Nurse Emergency
DX: H10.9 Unspecified conjunctivitis (principal); J06.9 Acute upper respiratory infection, unspecified; J02.9 Acute pharyngitis, unspecified
CPT/HCPCS: 87880; 99213

== ENCOUNTER 2023-05-24 15:32 | Outpatient (AMB) | payer BC, SELFPAY ==
[2023-05-24 15:34] VITALS: BP 112/72; PULSE 78; TEMP 36.6; O2SAT 97; BMI 27.6
--- NOTE | 2023-05-24 15:34 | MHC.OFFWIV ---
Intake Vital Signs 05/24/23 15:34 Height 5 ft 6.5 in Weight 173 lb 6 oz BMI 27.6 BP 112/72 Blood Pressure Location Rt brachial Position Sitting Pulse 78 Pulse Source Pulse Oximeter Temp 97.9 F Temp Source Oral Pulse Oximetry (%) 97 Oxygen Delivery Method Room Air Intake Visit Reasons: EP Sore throat, Headache Intake Note: Pt is here today for a sore throat, pt states hasn't got better from last visit 05/14/23 Patient Tobacco Use Status: Former Tobacco user Quit Date: 1989 Allergies No Known Allergies [No Known Allergies*] Allergy (Verified 05/24/23 15:35) seasonal allergies Allergy (Unknown, Uncoded 04/20/21 08:17) unknown Do you need a note to return to daycare/school/sports/work: No HPI HPI Comments History of Present Illness Details 57 y/o female patient who presents to walk in clinic with c/o URI symptoms x 2 weeks. Pt was seen 05/02 for bilateral conjunctivitis. Denies fevers, chills, nausea or vomiting. [facility]LY [facility] Medical History (Updated 05/24/23 @ 16:00 by Natividad Wells NP) Sleep apnea Anxiety Elevated cholesterol Depression GERD (gastroesophageal reflux disease) Cataract Foreign body of right index finger Abdominal pain, RUQ LFT elevation Prediabetes Renal stone Ureteral stone Kidney stones Surgical History (Updated 04/12/23 @ 07:57 by Francisca Hsu RN) History of right hip replacement History of left hip replacement Hx of shoulder surgery Hx of unilateral salpingectomy History of left oophorectomy H/O eye surgery History of tonsillectomy Family History Father No problems noted. Mother No problems noted. Brother No problems noted. Brother No problems noted. Daughter No problems noted. Unknown Adopted Social History Housing: House Patient Tobacco Use Status: Former Tobacco user Quit Date: 1989 Tobacco use type: Cigarette Cigarette Packs Per Day: 1 Years Smoked: 10 e-Cigarette/Vaping Use: Never Used Current occupational status: employed Sexual orientation: Straight/Heterosexual Gender identity: Female Cognitive needs: No Hearing needs: No Vision needs: No Review of Systems Const All systems reviewed & are unremarkable except as noted in HPI and below Physical Exam Vital Signs: Last Vital Signs Temp 97.9 F 05/24/23 15:34 Pulse 78 05/24/23 15:34 BP 112/72 05/24/23 15:34 Pulse Ox 97 05/24/23 15:34 Oxygen Delivery Method Room Air 05/24/23 15:34 BMI result Body Mass Index 27.6 Const General: comfortable and no acute distress Orientation/consciousness: patient oriented x3 HEENT Head: Yes normocephalic Ears: external ears normal and TM abnormal erythematous bilateral and with fluid behind the TM bilateral General nose exam: Abnormal mucous membranes and turbinates present boggy and erythematous Face and sinus: Yes sinuses nontender Mouth: moist mucous membranes Throat: Yes posterior oropharynx normal Resp Effort & Inspection: normal respiratory effort and able to speak in complete sentences Auscultation: clear to auscultation bilaterally, no crackles, no rales, no rhonchi and no wheezes Cardio Rate: regular rate Rhythm: regular rhythm Neuro General: patient oriented x3 Results AMB Rapid Strep AMB Rapid Strep Negative Last Edit by Giacomo Vyas MA on 05/24/23 15:52 Results Reviewed Results Reviewed: Laboratory Last Values Strep Scn Rapid Clinic Negative 05/24/23 15:52 Assessment & Plan Assessment & Plan (1) URI (upper respiratory infection): Code(s): J06.9 - Acute upper respiratory infection, unspecified Qualifiers: URI type: acute pharyngitis Pharyngitis/tonsillitis etiology: unspecified etiology Qualified Code(s): J02.9 - Acute pharyngitis, unspecified Plan: - OTC remedies - RTC if not better. Coding Level of Care Code Est Pt Level 3 (31885) Diagnoses Acute pharyngitis, unspecified etiology J02.9 URI type: acute pharyngitis Pharyngitis/tonsillitis etiology: unspecified etiology Time Spent (min) 15
== END 2023-05-24 16:15 | disposition home or self-care (01) ==
PROVIDERS: PCP Internal Medicine; Visit Provider Nurse Practitioner Family
DX: J02.9 Acute pharyngitis, unspecified (principal)
CPT/HCPCS: 87880; 99213

== ENCOUNTER 2023-06-11 08:06 | Outpatient (REF) | payer BC, SELFPAY | END 2023-06-11 08:07 | disposition home or self-care (01) | LOC: HO.MAMMO 08:06 | PROVIDERS: PCP Internal Medicine; Visit Provider Internal Medicine | DX: Z12.31 Encounter for screening mammogram for malignant neoplasm of breast (principal) | CPT/HCPCS: 77063; 77067 ==

== ENCOUNTER → 2023-06-11 08:30 | Outpatient (BNV) | payer BC, SELFPAY | PROVIDERS: PCP Internal Medicine; Visit Provider Radiology Diagnostic Radiology | DX: Z12.31 Encounter for screening mammogram for malignant neoplasm of breast (principal) | CPT/HCPCS: 77063; 77067 ==

== ENCOUNTER 2023-06-13 13:55 | Outpatient (AMB) | payer BC, SELFPAY ==
--- NOTE | 2023-06-13 14:04 | MHC.PC.OV ---
Vital Signs 06/13/23 14:05 Height 5 ft 6.5 in Weight 172 lb BMI 27.3 BP 108/62 Blood Pressure Location Lt brachial Position Sitting Pulse 97 Pulse Source Pulse Oximeter Pulse Oximetry (%) 97 Oxygen Delivery Method Room Air Intake Visit Reasons: Annual PE Mat Maker Required: No Allergies No Known Allergies [No Known Allergies*] Allergy (Verified 06/13/23 14:05) seasonal allergies Allergy (Unknown, Uncoded 04/20/21 08:17) unknown Medication List - Last Reconciled 06/13/23 by Hailey Moran MD citalopram 40 mg PO DAILY 90 days Tobacco use date assessed: 06/13/23 Dental Screening Dental Screen Date: 06/13/23 Did you have a dental visit in the last 12 months?: Yes Did you have a dental problem in the last 6 months where you did not have access to dental care?: No Was dental information given to patient?: Patient has dentist HPI Annual PE HPI Details Patient is a 57-year-old female came in today for physical exam Only medication she is taking his citalopram 40 mg patient says that she is not ready to taper it off Her mood is stable patient is taking it for depression and anxiety She has osteoarthritis multiple joints She had right hip replacement September of last year and left hip replacement July of last year by Dr. Chong Lab order placed to be done fasting Patient is prediabetic Mammogram is up-to-date OBGYN visit is up-to-date at [facility] Colonoscopy was March year Follow-up 6 months FORMERLY [facility] Medical History Sleep apnea Anxiety Elevated cholesterol Depression GERD (gastroesophageal reflux disease) Cataract Foreign body of right index finger Abdominal pain, RUQ LFT elevation Prediabetes Renal stone Ureteral stone Kidney stones Surgical History History of right hip replacement History of left hip replacement Hx of shoulder surgery Hx of unilateral salpingectomy History of left oophorectomy H/O eye surgery History of tonsillectomy Family History Father No problems noted. Mother No problems noted. Brother No problems noted. Brother No problems noted. Daughter No problems noted. Unknown Adopted Social History Housing: House Patient Tobacco Use Status: Former Tobacco user Quit Date: 1989 Tobacco use type: Cigarette Cigarette Packs Per Day: 1 Years Smoked: 10 Packs Per Year: 10 e-Cigarette/Vaping Use: Never Used Current occupational status: employed Sexual orientation: Straight/Heterosexual Gender identity: Female Cognitive needs: No Hearing needs: No Vision needs: No Questionnaire PHQ-9 Over the last 2 weeks, how often have you been bothered by any of the following problems? 1. Little interest or pleasure in doing things: not at all 2. Feeling down, depressed, or hopeless: several days 3. Trouble falling or staying asleep, or sleeping too much: several days 4. Feeling tired or having little energy: not at all 5. Poor appetite or overeating: not at all 6. Feeling bad about yourself - or that you are a failure or have let yourself or your family down: not at all 7. Trouble concentrating on things, such as reading the newspaper or watching television: not at all 8. Moving or speaking so slowly that other people could have noticed. Or the opposite - being so fidgety or restless that you have been moving around a lot more than usual: not at all 9. Thoughts that you would be better off or of hurting yourself in some way: not at all Total score: 2 Depression Screening Interpretation: Negative Depression Screening Done: Yes 98436 - PHQ-9 Billing: Yes Source: Developed by Drs. Julian Pal, Wanda Valenzuela, Donnie Ibanez and colleagues, with an educational arvin from [employer]. Thrive Questionnaire Date Thrive assessed: 06/13/23 I am a: Patient What is your living situation today?: I have a steady place to live Within the past 12 months, did the food you bought not last and you didn't have the money to get more?: Never true Within the past 12 months, did you worry whether your food would run out before you got money to buy more?: Never true Do you have trouble paying for medicines?: No Do you have trouble getting transportation to medical appointments?: No Do you have trouble paying your heating and electricity bill?: No Do you have trouble taking care of your child, family member or friend?: No Do you have trouble with day-to-day activities such as bathing, preparing meals, shopping, managing finances, etc.?: No Are you currently unemployed and looking for a job?: No Are you interested in more education?: No Please select the resources that you would like help with: None Currently or been in a relationship where the following occur: no concerns reported THRIVE Score: 0 AUDIT C Alcohol Use Questionnaire (AUDIT-C) 1. How often do you have a drink containing alcohol?: Never 3. How often do you have six or more drinks on one occasion?: Never Total Score: 0 Score Reviewed/Action Taken: Yes NANETTE-7 AMB Questionnaire NANETTE-7 Date NANETTE - 7 assessed: 06/13/23 Feeling nervous, anxious, or on edge: 0 = Not at all Not being able to stop or control worryin = Not at all Worrying too much about different things: 0 = Not at all Trouble relaxin = Not at all Being so restless that it is hard to sit still: 0 = Not at all Becoming easily annoyed or irritable: 0 = Not at all Feeling afraid as if something awful might happen: 0 = Not at all Total NANETTE-7 score (0-4 normal; 5-9 mild; 10-14 moderate; 15-21 severe): 0 Source: Developed by Drs. Julian Pal, Wanda Valenzuela, Donnie Ibanez and colleagues, with an educational arvin from [employer]. NANETTE-7 Assessment Billing NANETTE-7 Assessment Tool: NANETTE-7 Assessment 52920 Review of Systems Const Denies chills, Denies fever(s) and Denies headache(s) Eyes Denies blurry vision ENT Denies headache(s), Denies nasal discharge, Denies nasal obstruction, Denies odynophagia and Denies sinus pain Card Denies chest pain at rest and Denies chest pain with activity Resp Denies cough and Denies hemoptysis GI Denies diarrhea, Denies odynophagia, Denies vomiting and Denies hematemesis Reports as per HPI Musc Denies abnormal gait Skin/Breast Reports as per HPI Neuro Denies Neuro-related abnormal movements, Denies Abnormal speech present, Denies abnormal gait, Denies headache(s) and Denies Sensory deficit (Neuro) Psych Denies mood swings and Denies paranoia Endo Reports as per HPI Shlomo/Lymph Reports as per HPI Aller/Immun Reports as per HPI Physical exam (Primary Care) Vital Signs: Last Vital Signs Pulse 97 06/13/23 14:05 BP 108/62 06/13/23 14:05 Pulse Ox 97 06/13/23 14:05 Oxygen Delivery Method Room Air 06/13/23 14:05 BMI result Body Mass Index 27.3 Tobacco/Smoking Status: Tobacco use Status Tobacco use date assessed 06/13/23 06/13/23 14:10 Patient Tobacco Use Status Former Tobacco user 06/13/23 14:10 Tobacco use type Cigarette 06/13/23 14:10 e-Cigarette/Vaping Use Never Used 06/13/23 14:10 PHQ-9: PHQ-9 Score PHQ-9: Total score 2 06/13/23 14:27 Depression Screening Interpretation: Negative Thrive Assessment: Date of Thrive Assessment Date Thrive assessed 06/13/23 06/13/23 14:10 Currently or been in a relationship where the following occur: no concerns reported Const General: cooperative, comfortable and no acute distress Orientation/consciousness: patient oriented x3 HENMT Head: Yes normocephalic and Yes atraumatic Eyes General: appearance normal, both eyes and all related structures Pupils: Equal, round and reactive pupils present EOM: EOMs intact bilaterally Neck Neck: Yes supple and No lymphadenopathy Thyroid: Thyroid normal Lymphatic: no lymphadenopathy noted Chest Breast/axilla palpation: normal palpation of the breasts Resp Effort & Inspection: normal respiratory effort and able to speak in complete sentences Auscultation: clear to auscultation bilaterally Cardio Heart sounds: S1 normal heart sound present and S2 normal heart sound present GI Palpation (GI): Soft to palpation and nontender Auscultation: normal bowel sounds General: Yes no CVA tenderness Back/Spine/Pelvis Back: no CVA tenderness Skin General skin exam: elasticity normal and turgor normal Neuro General: patient oriented x3 and gait normal Cranial nerves: Yes Equal, round and reactive pupils present Speech: No Abnormal speech present Sensory Exam: No Sensory deficit (Neuro) Coordination: tandem gait normal and Romberg test negative Extrem General: Yes normal exam except as noted and No edema Assessment and Plan Assessment & Plan (1) Encounter for general adult medical examination with abnormal findings: Code(s): Z00.01 - Encounter for general adult medical examination with abnormal findings (2) Prediabetes: Code(s): R73.03 - Prediabetes (3) Depression, major, recurrent: Code(s): F33.9 - Major depressive disorder, recurrent, unspecified Qualifiers: Active/Remission status: in full remission Qualified Code(s): F33.42 - Major depressive disorder, recurrent, in full remission (4) Osteoarthritis of multiple joints: Code(s): M15.9 - Polyosteoarthritis, unspecified Qualifiers: Osteoarthritis type: primary Qualified Code(s): M15.9 - Polyosteoarthritis, unspecified Plan Patient is a 57-year-old female came in today for physical exam Only medication she is taking his citalopram 40 mg patient says that she is not ready to taper it off Her mood is stable patient is taking it for depression and anxiety She has osteoarthritis multiple joints She had right hip replacement September of last year and left hip replacement July of last year by Dr. Chong Lab order placed to be done fasting Patient is prediabetic Mammogram is up-to-date OBGYN visit is up-to-date at [facility] Colonoscopy was March last year Follow-up 6 months Orders: Orders Complete Blood Count Auto Diff Today F33.42 - Major depressive disorder, recurrent, in full remission, M15.9 - Polyosteoarthritis, unspecified, R73.03 - Prediabetes, Z00.01 - Encounter for general adult medical examination with abnormal findings Vitamin D 25-OH (D2 and D3) Today F33.42 - Major depressive disorder, recurrent, in full remission, M15.9 - Polyosteoarthritis, unspecified, R73.03 - Prediabetes, Z00.01 - Encounter for general adult medical examination with abnormal findings Comprehensive [place]. Panel Fast Today F33.42 - Major depressive disorder, recurrent, in full remission, M15.9 - Polyosteoarthritis, unspecified, R73.03 - Prediabetes, Z00.01 - Encounter for general adult medical examination with abnormal findings Lipid Panel Today F33.42 - Major depressive disorder, recurrent, in full remission, M15.9 - Polyosteoarthritis, unspecified, R73.03 - Prediabetes, Z00.01 - Encounter for general adult medical examination with abnormal findings Medications: Refilled citalopram 40 mg PO DAILY 90 days 90 tabs 1RF F33.9 - Major depressive disorder, recurrent, unspecified Coding Level of Care Code Est Pt Prev Care 40-64y(92427) Diagnoses Encounter for general adult medical examination with abnormal findings Z00.01 Prediabetes R73.03 Recurrent major depressive disorder, in full remission F33.42 Active/Remission status: in full remission Primary osteoarthritis involving multiple joints M15.9 Osteoarthritis type: primary Additional Codes NANETTE-7 Assessment Billing - NANETTE-7 Assessment Tool: NANETTE-7 Assessment [id number] ([id number])
[2023-06-13 14:05] VITALS: BP 108/62; PULSE 97; O2SAT 97; BMI 27.3
== END 2023-06-13 15:34 | disposition home or self-care (01) ==
PROVIDERS: PCP Internal Medicine; Visit Provider Internal Medicine
DX: Z00.00 Encounter for general adult medical examination without abnormal findings (principal); R73.03 Prediabetes; F33.42 Major depressive disorder, recurrent, in full remission; M15.9 Polyosteoarthritis, unspecified
CPT/HCPCS: 99396

== ENCOUNTER 2023-06-15 06:02 | Outpatient (REF) | payer BC, SELFPAY ==
[2023-06-15 10:33] LABS: MANUAL DIFF FLAG NO
[2023-06-15 10:51] LABS: Basophils Percent Auto 0.6 % (0-2); Eosinophils Absolute Auto 0.1 X10*3/uL (0.0-0.4); Hematocrit 45.5 % (37.0-47.0); Imm Gran Abs Auto 0.01 X10*3/uL (0.00-0.03); Imm Gran Pct Auto 0.2 % (0.0-0.4); Lymphocytes Absolute Auto 1.7 X10*3/uL (1.2-4.9); Lymphocytes Percent Auto 34.1 % (20-40); Mean Corpuscular Hemoglobin 29.6 pg (27.0-33.0); Mean Corpuscular Volume 89.9 fL (80.0-98.0); Mean Platelet Volume 9.7 fL (9.4-12.3); Monocytes Absolute Auto 0.4 X10*3/uL (0.1-1.2); Monocytes Percent Auto 8.7 % (2-11); Neutrophils Absolute Auto 2.7 x10*3/uL (2.0-8.3); Neutrophils Percent Auto 54.4 % (45-73); Platelet Count 318 X10*3/uL (160-400); Red Blood Count 5.06 X10*6/uL (4.20-5.50); Red Cell Distribution Width 12.8 % (11.0-16.0); White Blood Count 4.9 X10*3/uL (4.8-10.8)
[2023-06-15 11:28] LABS: Alanine Aminotransferase 17 U/L (0-31); Albumin Level 4.1 g/dL (3.5-5.0); Alkaline Phosphatase 150 U/L (39-117); Anion Gap 11 (12-20); Aspartate Amino Transferase 21 U/L (5-31); Bilirubin Total 0.4 mg/dL (0.0-1.0); Blood Urea Nitrogen 15 mg/dL (9-16); Calcium 9.8 mg/dL (8.4-10.2); Carbon Dioxide 28 mmol/L (22-29); Chloride 108 mmol/L (96-108); Cholesterol 231 mg/dL (<200); Estimated Glomerular Filt Rate > 60; Glucose Fasting 95 mg/dL (60-99); HDL Cholesterol 51 mg/dL (>40); LDL Cholesterol Calculated 160 mg/dL (<100); Potassium 4.6 mmol/L (3.3-5.1); Sodium 142 mmol/L (135-145); Total Protein 7.1 g/dL (6.5-8.0); Triglycerides 103 mg/dL (<150)
[2023-06-19 14:38] LABS: Vitamin D 25-OH, D2 <4 ng/mL; Vitamin D 25-OH, D3 29 ng/mL; Vitamin D 25-OH, Total 29 ng/mL (30-100)
== END 2023-06-15 06:03 | disposition home or self-care (01) ==
LOC: HO.HMGCLDS 06:02
PROVIDERS: PCP Internal Medicine; Visit Provider Internal Medicine
DX: Z00.01 Encounter for general adult medical examination with abnormal findings (principal); Z13.6 Encounter for screening for cardiovascular disorders; F33.42 Major depressive disorder, recurrent, in full remission; M15.9 Polyosteoarthritis, unspecified; R73.03 Prediabetes
CPT/HCPCS: 36415; 80053; 80061; 82306; 85025

== ENCOUNTER 2023-09-12 09:14 | Outpatient (AMB) | payer BC, SELFPAY ==
[2023-09-12 09:17] VITALS: BP 106/70; PULSE 86; O2SAT 97; BMI 28.0
--- NOTE | 2023-09-12 09:17 | A.OFFPC_ITS ---
Vital Signs 3 09/12/23 09:17 Height 5 ft 6.5 in Weight 176 lb BMI 28.0 BP 106/70 Blood Pressure Location Lt brachial Position Sitting Pulse 86 Pulse Source Pulse Oximeter Pulse Oximetry (%) 97 Intake Visit Reasons: nck rash Quality Compliance Manager Required: No Accompanied by: Self / Same As Patient Allergies No Known Allergies [No Known Allergies*] Allergy (Verified 09/12/23 09:17) seasonal allergies Allergy (Unknown, Uncoded 04/20/21 08:17) unknown Medication List - Last Reconciled 09/12/23 by Hailey Moran MD citalopram 40 mg PO DAILY 90 days Tobacco use date assessed: 06/13/23 Dental Screening Dental Screen Date: 06/13/23 HPI nck rash 2 HPI0 Details Patient is a 57-year-old female with a history of depression/anxiety, history of prediabetes, history of lipid disorder, history of vitamin-D deficiency Came in for her regular follow-up and also to be evaluated for rash she has developed on her neck both sides Rash looks like eczema to me, she has appointment with the Dermatology tomorrow She had right shoulder arthroscopic procedure done for arthritis shoulder She is doing well And will have left shoulder done soon Patient wanted to go over her labs from May Her alkaline phosphatase is elevated, she had a ultrasound done in 2020 which showed fatty liver Findings explained to patient She is overweight with BMI of 28.0 and has gained 4 lb since May Losing weight and continuing exercising and eating healthy will improve the liver enzymes. Patient would like to repeat labs again in May when she will come back for physical exam Order placed to be done fasting She is also prediabetic however since 2020 her fasting sugar has been normal. [facility] Medical History Sleep apnea Anxiety Elevated cholesterol Depression GERD (gastroesophageal reflux disease) Cataract Foreign body of right index finger Abdominal pain, RUQ LFT elevation Prediabetes Renal stone Ureteral stone Kidney stones Surgical History History of right hip replacement History of left hip replacement Hx of shoulder surgery Hx of unilateral salpingectomy History of left oophorectomy H/O eye surgery History of tonsillectomy Family History Father No problems noted. Mother No problems noted. Brother No problems noted. Brother No problems noted. Daughter No problems noted. Unknown Adopted Social History Housing: House Patient Tobacco Use Status: Former Tobacco user Tobacco use type: Cigarette Cigarette Packs Per Day: 1 Years Smoked: 10 Packs Per Year: 10 e-Cigarette/Vaping Use: Never Used Current occupational status: employed Sexual orientation: Straight/Heterosexual Gender identity: Female Cognitive needs: No Hearing needs: No Vision needs: No Questionnaire PHQ-9 Over the last 2 weeks, how often have you been bothered by any of the following problems? 1. Little interest or pleasure in doing things: not at all 2. Feeling down, depressed, or hopeless: not at all 3. Trouble falling or staying asleep, or sleeping too much: not at all 4. Feeling tired or having little energy: not at all 5. Poor appetite or overeating: not at all 6. Feeling bad about yourself - or that you are a failure or have let yourself or your family down: not at all 7. Trouble concentrating on things, such as reading the newspaper or watching television: not at all 8. Moving or speaking so slowly that other people could have noticed. Or the opposite - being so fidgety or restless that you have been moving around a lot more than usual: not at all 9. Thoughts that you would be better off or of hurting yourself in some way: not at all Total score: 0 Depression Screening Interpretation: Negative Depression Screening Done: Yes 16289 - PHQ-9 Billing: Yes Source: Developed by Drs. Julian Pal, Wanda Valenzuela, Donnie Ibanez and colleagues, with an educational arvin from [employer]. Thrive Questionnaire Date Thrive assessed: 09/12/23 I am a: Patient What is your living situation today?: I have a steady place to live Within the past 12 months, did the food you bought not last and you didn't have the money to get more?: I choose not to answer this question Within the past 12 months, did you worry whether your food would run out before you got money to buy more?: I choose not to answer this question Do you have trouble paying for medicines?: I choose not to answer this question Do you have trouble getting transportation to medical appointments?: I choose not to answer this question Do you have trouble paying your heating and electricity bill?: I choose not to answer this question Do you have trouble taking care of your child, family member or friend?: I choose not to answer this question Do you have trouble with day-to-day activities such as bathing, preparing meals, shopping, managing finances, etc.?: I choose not to answer this question Are you currently unemployed and looking for a job?: I choose not to answer this question Are you interested in more education?: I choose not to answer this question Please select the resources that you would like help with: Housing/Detention Currently or been in a relationship where the following occur: I choose not to answer THRIVE Score: 0 AUDIT C Alcohol Use Questionnaire (AUDIT-C) 1. How often do you have a drink containing alcohol?: Never Total Score: 0 Score Reviewed/Action Taken: Yes NANETTE-7 AMB Questionnaire NANETTE-7 Date NANETTE - 7 assessed: 09/12/23 Feeling nervous, anxious, or on edge: 0 = Not at all Not being able to stop or control worryin = Not at all Worrying too much about different things: 0 = Not at all Trouble relaxin = Not at all Being so restless that it is hard to sit still: 0 = Not at all Becoming easily annoyed or irritable: 0 = Not at all Feeling afraid as if something awful might happen: 0 = Not at all Total NANETTE-7 score (0-4 normal; 5-9 mild; 10-14 moderate; 15-21 severe): 0 Source: Developed by Drs. Julian Pal, Wanda Valenzuela, Donnie Ibanez and colleagues, with an educational arvin from [employer]. NANETTE-7 Assessment Billing NANETTE-7 Assessment Tool: NANETTE-7 Assessment 80548 Review of Systems Const Denies chills and Denies fever(s) ENT Denies epistaxis and Denies nasal discharge Card Denies chest pain Resp Denies chest congestion, Denies cough and Denies hemoptysis GI Denies diarrhea and Denies nausea Skin/Breast Denies rash Neuro Reports no additional complaints Psych Reports no additional complaints Endo Reports no additional complaints Physical exam (Primary Care) Vital Signs: Last Vital Signs Pulse 86 09/12/23 09:17 BP 106/70 09/12/23 09:17 Pulse Ox 97 09/12/23 09:17 BMI result Body Mass Index 28.0 Tobacco/Smoking Status: Tobacco use Status Tobacco use date assessed 06/13/23 09/12/23 09:19 Patient Tobacco Use Status Former Tobacco user 09/12/23 09:19 Tobacco use type Cigarette 09/12/23 09:19 e-Cigarette/Vaping Use Never Used 09/12/23 09:19 PHQ-9: PHQ-9 Score PHQ-9: Total score 0 09/12/23 09:54 Depression Screening Interpretation: Negative Thrive Assessment: Date of Thrive Assessment Date Thrive assessed 09/12/23 09/12/23 09:19 Currently or been in a relationship where the following occur: I choose not to answer Const General: cooperative, comfortable and no acute distress Orientation/consciousness: patient oriented x3 HENMT Head: Yes normocephalic Eyes General: appearance normal, both eyes and all related structures Neck Neck: Yes supple Resp Effort & Inspection: normal respiratory effort, no cough and no stridor Cardio Rhythm: regular rhythm Skin General skin exam: turgor normal Full body images: 2 1. Eczematous rash 2. Eczematous rash Neuro General: patient oriented x3, tone normal and moves all extremities Extrem Right lower extremity: no edema Left lower extremity: no edema Assessment and Plan Assessment & Plan (1) Erythematous rash: Code(s): R21 - Rash and other nonspecific skin eruption (2) Prediabetes: Code(s): R73.03 - Prediabetes (3) LFT elevation: Code(s): R79.89 - Other specified abnormal findings of blood chemistry (4) Depression, major, recurrent: Code(s): F33.9 - Major depressive disorder, recurrent, unspecified Qualifiers: Active/Remission status: in full remission Qualified Code(s): F33.42 - Major depressive disorder, recurrent, in full remission (5) Vitamin D deficiency: Code(s): E55.9 - Vitamin D deficiency, unspecified (6) Overweight (BMI 25.0-29.9): Code(s): E66.3 - Overweight (7) Lipid disorder: Code(s): E78.9 - Disorder of lipoprotein metabolism, unspecified Plan Patient is a 57-year-old female with a history of depression/anxiety, history of prediabetes, history of lipid disorder, history of vitamin-D deficiency Came in for her regular follow-up and also to be evaluated for rash she has developed on her neck both sides Rash looks like eczema to me, she has appointment with the Dermatology tomorrow She had right shoulder arthroscopic procedure done for arthritis shoulder She is doing well And will have left shoulder done soon Patient wanted to go over her labs from May Her alkaline phosphatase is elevated, she had a ultrasound done in 2020 which showed fatty liver Findings explained to patient She is overweight with BMI of 28.0 and has gained 4 lb since May Losing weight and continuing exercising and eating healthy will improve the liver enzymes. Patient would like to repeat labs again in May when she will come back for physical exam Order placed to be done fasting She is also prediabetic however since 2020 her fasting sugar has been normal. Orders: Orders 2 Hemoglobin A1c 6 Months E55.9 - Vitamin D deficiency, unspecified, E66.3 - Overweight, E78.9 - Disorder of lipoprotein metabolism, unspecified, F33.42 - Major depressive disorder, recurrent, in full remission, R73.03 - Prediabetes, R79.89 - Other specified abnormal findings of blood chemistry TSH reflex Free T4 6 Months E55.9 - Vitamin D deficiency, unspecified, E66.3 - Overweight, E78.9 - Disorder of lipoprotein metabolism, unspecified, F33.42 - Major depressive disorder, recurrent, in full remission, R73.03 - Prediabetes, R79.89 - Other specified abnormal findings of blood chemistry Lipid Panel 6 Months E55.9 - Vitamin D deficiency, unspecified, E66.3 - Overweight, E78.9 - Disorder of lipoprotein metabolism, unspecified, F33.42 - Major depressive disorder, recurrent, in full remission, R73.03 - Prediabetes, R79.89 - Other specified abnormal findings of blood chemistry Vitamin D 25-OH (D2 and D3) 6 Months E55.9 - Vitamin D deficiency, unspecified, E66.3 - Overweight, E78.9 - Disorder of lipoprotein metabolism, unspecified, F33.42 - Major depressive disorder, recurrent, in full remission, R73.03 - Prediabetes, R79.89 - Other specified abnormal findings of blood chemistry Comprehensive [place]. Panel Fast 6 Months E55.9 - Vitamin D deficiency, unspecified, E66.3 - Overweight, E78.9 - Disorder of lipoprotein metabolism, unspecified, F33.42 - Major depressive disorder, recurrent, in full remission, R73.03 - Prediabetes, R79.89 - Other specified abnormal findings of blood chemistry Complete Blood Count Auto Diff 6 Months E55.9 - Vitamin D deficiency, unspecified, E66.3 - Overweight, E78.9 - Disorder of lipoprotein metabolism, unspecified, F33.42 - Major depressive disorder, recurrent, in full remission, R73.03 - Prediabetes, R79.89 - Other specified abnormal findings of blood chemistry Coding Level of Care Code Est Pt Level 4 (70329) Diagnoses Erythematous rash R21 Prediabetes R73.03 LFT elevation R79.89 Recurrent major depressive disorder, in full remission F33.42 Active/Remission status: in full remission Vitamin D deficiency E55.9 Overweight (BMI 25.0-29.9) E66.3 Lipid disorder E78.9 Additional Codes NANETTE-7 Assessment Billing - NANETTE-7 Assessment Tool: NANETTE-7 Assessment 70826 ([id number])
== END 2023-09-12 09:57 | disposition home or self-care (01) ==
PROVIDERS: PCP Internal Medicine; Visit Provider Internal Medicine
DX: R21 Rash and other nonspecific skin eruption (principal); F33.42 Major depressive disorder, recurrent, in full remission; R73.03 Prediabetes; R79.89 Other specified abnormal findings of blood chemistry; E55.9 Vitamin D deficiency, unspecified; E66.3 Overweight; E78.9 Disorder of lipoprotein metabolism, unspecified
CPT/HCPCS: 99214

== ENCOUNTER 2024-04-15 07:17 | Outpatient (AMB) | payer BC, SELFPAY ==
--- OUTSIDE RECORDS SUMMARY | 2024-04-15 07:18 | XMS_ITS | Patient Health Record ---
Author Organization [facility] Address [address] [place] [address] Care Team Providers Care Graphic Design Teacher Name Role Phone Dean MAHONEY, Asma Primary Care Provider Anshul Potter Jr Unavailable [phone] ALLERGIES Allergen (clinical drug ingredient) Drug/Non Drug Allergy documented on EMR Reaction Allergy Type Onset Date Status seasonal allergies (uncoded) Unknown Allergy Active RESULTS Component Value Reference Range Notes Pathology Reviewed date:04/23/2023 07:58:56 AM Interpretation: Performing Lab:[facility], [address] [place] [id number] Notes/Report: REASON FOR REFERRAL No Information MEDICATIONS Medication SIG (Take, Route, Frequency, Duration) Notes Start Date End Date Status HYDROcodone-Acetaminophen 10-325 MG 1 tablet as needed Orally every 6 hrs Active Citalopram Hydrobromide 40 MG TAKE 1 TABLET BY MOUTH ONCE DAILY Oral for 90 Active Ketoconazole 2 % 1 application Computer Technology Instructor ally Once a day for 14 day(s) Active MiraLax (colon prep) 17 GM/SCOOP mixed with Gatorade or Crystal Light Orally begin at 5:00 p.m. the day before the procedure for 1 day 08/23/2022 Active traMADol HCl 50 MG 1 tablet as needed O rally Once a day Active Celecoxib 200 MG 1 capsule with food Orally Once a day for 30 day(s) Active Aspirin 81 81 MG 1 tablet Orally Once a day for 30 day(s) Active Pantoprazole Sodium 40 MG 1 tablet Orall y Once a day for 30 day(s) Active Docusate Sodium 100 MG 1 capsule as need ed Orally Once a day for 30 day(s) Active IMMUNIZATIONS Vaccine Route Administration Date Status Comme nts Influenza Unknown 08/23/2022 Refused SOCIAL HISTORY Tobacco Use: Social History Observation Description Date Details (start date - stop date) Former Smoker NA - NA Sex Assigned At : Social History Observation Description Sex Assigned At Unknown Tobacco Use/Smoking Question Answer Notes Patient is a former smoker How long has it been since you last smoked? > 10 years Alcohol Screen Question Answer Notes Did you have a drink contain ing alcohol in the past year? Yes How often did you have a dri nk containing alcohol in the past year? Monthly or less (1 point) How many drinks did you have on a typical day when you were drinking in the past year? 1 or 2 drinks (0 point) How often did you have 6 or more drinks on one occasion in the past year? Never (0 point) Points 1 Interpretation Negative PROBLEMS Problem Type ICD Code Onset Dates Problem Status W/U Status Risk SNOMED Code Notes Problem Colon cancer screening (Z12.11) Active confirmed 534826275 Problem Gastroesophageal reflux disease without esophagitis (K21.9) Active confirmed 605802687 Problem Right flank pain (R10.9) Active confirmed 194989981 Problem Personal history of colonic polyps (Z86.010) Active confirmed History of polyp of colon (situation) (951602571) Encounters Encounter Location Date Provider Diagnosis [facility] [address] [place], [place] [id number] 04/17/2023 Anshul Medina Jr Encounter for screening colonoscopy Z12.11 ; Personal history of colonic polyps Z86.010 and Colon polyps K63.5 [facility] [address] [place] [address] 04/23/2023 Anshul Medina Jr ASSESSMENTS Encounter Date Diagnosis Assessment Notes Treatment Notes Treatment Clinical Notes 04/17/2023 Encounter for screening colonoscopy (ICD-10 - Z12.11) 04/17/2023 Personal history of colonic polyps (ICD-10 - Z86.010) 04/17/2023 Colon polyps (ICD-10 - K63.5) PLAN OF TREATMENT Future Test Test Name Order Date COLONOSCOPY 08/22/2017 COLONOSCOPY 08/23/2022 Insurance Providers Payer Name Payer Address Payer Phone Subscriber Number Group Number Insured Name Patient Relationship to Insured Coverage Start Date Coverage End Date [facility] [address] [place], [place] [id number] [phone] [id number] AZALIA [id number] Self - patient is the insured MEDICAL (GENERAL) HISTORY Medical History History ICD Code gastroesophageal reflux disease depression elevated cholesterol Surgical History Surgery Date(Month/Year) tonsillectomy Left oophorectomy/partial salpingectomy, benign 08/06 shoulder surgery 2002 left hip replacement 08/14/22 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
--- OUTSIDE RECORDS SUMMARY | 2024-04-15 07:18 | XMS_ITS ---
Author Organization [facility] Address [address] [place] [address] Care Team Providers Care Manager Billing Name Role Phone Dean [facility], [facility] Primary Care Provider Anshul Potter Jr [phone] REASON FOR VISIT colon screening PROBLEMS Problem Type ICD Code Onset Dates Problem Status W/U Status Risk SNOMED Code Notes Problem Personal history of colonic polyps (Z86.010) Active confirmed History of polyp of colon (situation) (425132756) Encounters Encounter Location Date Provider Diagnosis [facility] Outpatient [address] [place] [phone] 04/17/2023 Anshul Medina Jr Encounter for screening colonoscopy Z12.11 ; Personal history of colonic polyps Z86.010 and Colon polyps K63.5 ASSESSMENTS Encounter Date Diagnosis Assessment Notes Treatment Notes Treatment Clinical Notes 04/17/2023 Encounter for screening colonoscopy (ICD-10 - Z12.11) 04/17/2023 Personal history of colonic polyps (ICD-10 - Z86.010) 04/17/2023 Colon polyps (ICD-10 - K63.5) PLAN OF TREATMENT No Information
--- OUTSIDE RECORDS SUMMARY | 2024-04-15 07:18 | XMS_ITS ---
Author Organization [facility] Address [address] [place] [address] Care Team Providers Care Chemical Processing Laborer Name Role Phone Dean [facility] Primary Care Provider Anshul Potter Jr REASON FOR VISIT pathology Encounters Encounter Location Date Provider Diagnosis [facility] [address] [place] [address] 04/23/2023 Anshul Medina Jr PLAN OF TREATMENT No Information
--- OUTSIDE RECORDS SUMMARY | 2024-04-15 07:18 | XMS_ITS | Clinical Summary ---
Author Organization [facility] Address [address] [place] [address] Care Team Providers Care Steam And Power Superintendent Name Role Phone Surinder Sierra MD Primary Care Provider [phone] Social History Tobacco Use Types Packs/Day Years Used Date Smoking Tobacco: Never Assessed Comments Unknown Sex and Gender Information Value Date Recorded Sex Assigned at Not on file Legal Sex Female 1:27 AM EST Gender Identity Not on file Sexual Orientation Not on file Plan of Treatment Health Maintenance Due Date Last Done Comments Breast Cancer Screening 1965 DTaP,Tdap,and Td Vaccines (1 - Tdap) 1984 Hepatitis B Vaccines (1 of 3 - 19+ 3-dose series) 1984 Cervical Cancer Screening: P ap Smear 1986 Pneumococcal Vaccine: 50+ Ye ars (1 of 1 - PCV) 12/08/2015 Zoster Vaccines (1 of 2) 12/08/2015 COVID-19 Vaccine ( - 2023-2 5 season) 2023 Influenza Vaccine (#1) 2023 HIB Vaccines Aged Out No longer eligi ble based on patient's age to complete this topic HPV Vaccines Aged Out No longer eligi ble based on patient's age to complete this topic Hepatitis A Vaccines Aged Out No long er eligible based on patient's age to complete this topic IPV Vaccines Aged Out No longer eligi ble based on patient's age to complete this topic MMR Vaccines Aged Out No longer eligi ble based on patient's age to complete this topic Meningococcal ACWY Vaccine Aged Out N o longer eligible based on patient's age to complete this topic Meningococcal B Vacine Aged Out No lo nger eligible based on patient's age to complete this topic Pneumococcal Vaccine: Pediat rics (0 to 5 Years) and At-Risk Patients (6 to 64 Years) Aged Out No longer eligible b ased on patient's age to complete this topic RSV Immunization Patients Un sade 20 months Aged Out No longer eligible b ased on patient's age to complete this topic Varicella Vaccines Aged Out No longer eligible based on patient's age to complete this topic Care Teams Steam And Power Superintendent Relationship Specialty Start Date End Date Surinder Sierra MD [address] [place] [address] PCP - General 08/05/07
--- OUTSIDE RECORDS SUMMARY | 2024-04-15 07:19 | XMS_ITS | Patient Health Record ---
Author Organization [facility] [place] Address [address] [place] [address] Care Team Providers Care Scheduling Coordinator Name Role Phone Dean [facility] Primary [facility] Provider Huber Rosales Unavailable [phone] Allergies Allergen (clinical drug ingredient) Drug/Non Drug Allergy documented on EMR Reaction Allergy Type Onset Date Status Latex Latex Unknown Allergy Active Reason For Referral No Information Medications Medication SIG (Take, Route, Frequency, Duration) Notes Start Date End Date Status Cephalexin 500 MG 1 capsule Orally ra ry 12 hrs for 10 days Active Ketoconazole 2 % External for 30 Active Citalopram Hydrobromide 40 MG as directed Orally Active Immunizations Vaccine Route Administration Date Status Comme nts COVID-19 Moderna Vaccine Unknown 09/26/2020 Administered unsure dates Social History Tobacco Use: Social History Observation Description Date Details (start date - stop date) Former Smoker NA - NA Tobacco Use/Smoking Question Answer Notes Are you a: former smoker Additional Findings: Tobacco Non-User Current no n-smoker Alcohol Screen Question Answer Notes Did you have a drink containing alcohol in the p ast year? No Points 0 Interpretation Negative Tobacco use other than smoking: Question Answer Notes Are you an other tobacco user? No Plan Of Treatment Pending Test Test Name Order Date 97916 I&D ABSCESS- SIMPLE,SINGLE 023 Insurance Providers Payer Name Payer Address Payer Phone Subscriber Number Group Number Insured Name Patient Relationship to Insured Coverage Start Date Coverage End Date [facility] [address] [place] [address] [phone] [id number] Benny Cooper Spouse - patient is the spouse of the insured Medical (General) History Medical History History ICD Code Anxiety Arthritis Back,Hip,and Knee pain Cataracts covid-19 Depression Gall bladder problems Reflux ( GERD) Chicken pox Surgical History Surgery Date(Month/Year) tonsillectomy cyst removal shoulder surgery cataract surgery 01/17,02/16 5x Juan 2021
--- NOTE | 2024-04-15 07:24 | A.OFFVIS_ITS ---
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 She is doing well with transaction coordinator concerns. Currently not sexually active, has medical concerns. Denies any vaginal irritation. Attempting to eat a healthy diet with calcium and vitamin D and stays active with exercise-active. Last pap smear; 2021. Last mammogram; 2023. Colonoscopy is UTD. Adopted. [facility] Medical History Sleep apnea Anxiety Elevated cholesterol Depression GERD (gastroesophageal reflux disease) Cataract Foreign body of right index finger Abdominal pain, RUQ LFT elevation Prediabetes Renal stone Ureteral stone Kidney stones Surgical History History of right hip replacement History of left hip replacement Hx of shoulder surgery Hx of unilateral salpingectomy History of left oophorectomy H/O eye surgery History of tonsillectomy Family History Father No problems noted. Mother No problems noted. Brother No problems noted. Brother No problems noted. Daughter No problems noted. Unknown Adopted Social History Housing: House Patient Tobacco Use Status: Former Tobacco user Tobacco use type: Cigarette Cigarette Packs Per Day: 1 Years Smoked: 10 e-Cigarette/Vaping Use: Never Used Current occupational status: employed Sexual orientation: Straight/Heterosexual Gender identity: Female Cognitive needs: No Hearing needs: No Vision needs: No Female Reproductive History Menstrual Date of last pap smear: 05/05/21 Date of Mammogram: 06/11/23 Review of Systems Const All systems reviewed & are unremarkable except as noted in HPI and below Reports as per HPI Eyes Reports no additional complaints ENT Reports no additional complaints Card Reports no additional complaints Resp Reports no additional complaints GI Reports as per HPI and Reports no additional complaints Reports as per HPI Musc Reports no additional complaints Skin/Breast Reports as per HPI Neuro Reports no additional complaints Psych Reports no additional complaints Endo Reports no additional complaints Shlomo/Lymph Reports no additional complaints Aller/Immun Reports no additional complaints Physical Exam Vital Signs: Last Vital Signs BP 100/60 04/15/24 07:25 BMI result Body Mass Index 28.6 Const General: cooperative, healthy appearing, no acute distress, well developed and alert Orientation/consciousness: patient oriented x3 HEENT Head: Yes normal to inspection Eyes General: appearance normal, both eyes and all related structures Neck Neck: Yes normal visual inspection Thyroid: Thyroid normal Chest Chest palpation & inspection: normal inspection of the chest and other (no puckering, dimpling, peau de orange, retraction, discharge, masses) Breast/axilla inspection: normal inspection of the breasts Breast/axilla palpation: normal palpation of the breasts Resp Effort & Inspection: normal respiratory effort GI Inspection: Yes normal to inspection Palpation (GI): Soft to palpation Rectal Exam - Female: deferred General: Yes bladder normal to palpation External Female Exam: normal external appearance and normal appearance of the urethra Speculum Exam - Vagina: normal appearance of the vagina, normal palpation, normal vaginal discharge and vagina atrophic Speculum Exam - Cervix: normal appearance of the cervix (Atrophic changes) and normal palpation Bimanual exam- vagina & uterus: normal bimanual exam, normal palpation, uterine size normal, bladder normal to palpation, normal palpation and non-tender Bimanual Exam- Adnexa, other: no masses Skin General skin exam: no rashes or lesions noted Rashes: no rashes Neuro General: patient oriented x3 Cognition (Neuro): normal cognition Extrem General: Yes normal to inspection Psych Attitude: cooperative Thought process: Normal thought process present Assessment & Plan Assessment & Plan (1) Encounter for well woman exam with routine gynecological exam: Code(s): Z01.419 - Encounter for gynecological examination (general) (routine) without abnormal findings Category: Medical Plan Discussed: Current recommendations for pap smears per ASCCP guidelines. Pap due in 2026. Breast awareness, periodic self breast exams and yearly mammogram. Maintain a healthy lifestyle, well balanced diet including Calcium 1,200 mg and Vitamin D 600 IU daily, and routine exercise. Contact the office with any postmenopausal bleeding. Patient verbalizes understanding and agrees to the plan of care. She was given opportunity to ask questions and all questions were answered to the best of my ability. RTO in 1 year for annual transaction coordinator exam. This note is constructed using voice recognition software. While every effort has been made to ensure accuracy, bottom turning lathe turner errors may have been included. Coding Level of Care Code Est Pt Prev Care 40-64y(58866) Diagnoses Encounter for well woman exam with routine gynecological exam Z01.419
[2024-04-15 07:25] VITALS: BP 100/60; BMI 28.6
== END 2024-04-15 09:11 | disposition home or self-care (01) ==
LOC: HO.HWS 07:17
PROVIDERS: PCP Internal Medicine; Visit Provider Advanced Practice Midwife
DX: Z01.419 Encounter for gynecological examination (general) (routine) without abnormal findings (principal)
CPT/HCPCS: 99396; 99459

== ENCOUNTER → 2024-04-15 07:17 | Outpatient (BNVA) | payer BC, SELFPAY | PROVIDERS: PCP Internal Medicine; Visit Provider Advanced Practice Midwife ==

== ENCOUNTER 2024-06-17 06:02 | Outpatient (REF) | payer BC, SELFPAY ==
--- NOTE | ~2024-06-17 | MM_ITS ---
EXAMINATION: MM SCREENING DIGITAL BREAST TOMOSYNTHESIS, BILATERAL CLINICAL INFORMATION: Screening. Asymptomatic. COMPARISON: Mammography: Comparison is made with available priors TECHNIQUE: Digital breast mammography with tomosynthesis is performed in both the craniocaudal and mediolateral oblique views along with computer-aided detection (CAD). FINDINGS: The breasts are heterogeneously dense, which may obscure small masses (ACR BI-RADS breast composition Category c). There are no significant masses, abnormal calcifications, or other abnormalities. MM/MM tomosynthesis screening BI IMPRESSION: No mammographic evidence of malignancy. ASSESSMENT: BI-RADS BI-RADS 1 - Negative RECOMMENDATION: Routine annual mammography screening. 1 year F/U This examination should not preclude the clinical evaluation of a suspicious palpable abnormality. This patient's information was entered into a reminder system with a target due date for their next mammogram. Electronically signed by: Mandi Garza DO 06/22/2024 08:11 PM EDT
--- OUTSIDE RECORDS SUMMARY | 2024-06-17 06:05 | XMS_ITS | Patient Health Record ---
[facility] [place] Address [address] [place] [address] Care Team Providers Care Biztalk Administrator Name Role Phone Dean [facility]ONE[facility], [facility] Primary [facility] Provider Huber Rosales Unavailable [phone] Allergies Allergen (clinical drug ingredient) Drug/Non Drug [...] Treatment Pending Test Test Name Order Date 12257 I&D ABSCESS- SIMPLE,SINGLE 023 Insurance Providers Payer Name Payer Address Payer Phone Subscriber Number Group Number Insured Name Patient Relationship to Insured Coverage Start Date Coverage End Date [facility] [address] [place] [address] [id number] Benny Cooper Spouse - patient is the spouse of the insured Medical (General) History Medical History History ICD Code Anxiety Arthritis Back,Hip,and Knee pain Cataracts covid-19 Depression Gall bladder problems Reflux ( GERD) Chicken pox Surgical History Surgery Date(Month/Year) tonsillectomy cyst removal shoulder surgery cataract surgery 01/17,02/16 5x Juan 2021
--- OUTSIDE RECORDS SUMMARY | 2024-06-17 06:05 | XMS_ITS ---
Author Organization [facility] Address [address] [place] [address] Care Team Providers Care Sandblaster Supervisor Name Role Phone Dean [facility]ONE[facility], [facility] Primary Care Provider Anshul Potter Jr [phone] REASON FOR VISIT colon screening Problems Problem Type SNOMED Code ICD Code Onset Dates Problem Status W/U Status Risk Notes Problem History of polyp of colon (situation) (834519891) Personal history of colonic polyps (Z86.010) Active confirmed Encounters Encounter Location Date Provider Diagnosis [facility] Outpatient [address] [place] [phone] 04/17/2023 Anshul Medina Jr Encounter for screening colonoscopy Z12.11 ; Personal history of colonic polyps Z86.010 and Colon polyps K63.5 Assessments Encounter Date Diagnosis (ICD Code) Assessment Notes Treatment Notes Treatment Clinical Notes Section Notes 04/17/2023 Encounter for screening colonoscopy (ICD-10 - Z12.11) 04/17/2023 Personal history of colonic polyps (ICD-10 - Z86.010) 04/17/2023 Colon polyps (ICD-10 - K63.5) Plan Of Treatment No Information Progress Notes * AZALIA MCRAEDOB:1965 (58 yo F)Acc No.[id number]:04/17/2023 COLON WITH MAC Patient:?AZALIA MCRAE Provider:?Anshul Medina MD :1965???Age:57 Y???Sex:Female D ate:04/17/2023 Address:[address] [place] [address], [id number] Pcp:Hailey Moran MD Subjective: * Chief Complaints: * ???1. Colon screening. * Medical History:? Objective: * Vitals:? Assessment: * Assessment: 1.?Encounter for screening c olonoscopy - Z12.11 (Primary)???2.?Personal history of colonic polyps - Z86.010???3.?Colon polyps - K63.5??? Plan: * Treatment: * Procedure Codes:?26718 LESIO N REMOVAL COLONOSCOPY * Preventive Medicine:? ??MATT Screening:?Colonoscopy?Was interval between colonoscopies three years or more??Yes,?Was last colonoscopy performed three or more years ago??Yes.? * * The named appointment provid er may or may not be the originator of this progress note, and it is not deemed complete until electronically signed by the appointment provider. Sign off status: Pending * Provider:?Anshul Medina MD Date:?0 04/17/2023 Generated for Ismael grey/Zenia/eTransmitting on:?06/17/2024 06:05 AM EDT
--- OUTSIDE RECORDS SUMMARY | 2024-06-17 06:05 | XMS_ITS | Clinical Summary ---
Author Organization [facility] [place] Address [address] [place] [address] Care Team Providers Care Gas Engine Repairer Name Role Phone Surinder Sierra MD Primary Care Provider [phone] Social History Tobacco Use Types Packs/Day Years [...] Vaccines (1 of 2) 12/08/2015 COVID-19 Vaccine (1 - 2023-2 5 season) 2023 Influenza Vaccine (Season Ended) 2024 HIB Vaccines Aged Out No longer eligi [...] age to complete this topic Meningococcal B Vaccine Aged Out No l onger eligible based on patient's age to complete [...] age to complete this topic Care Teams Gas Engine Repairer Relationship Specialty Start Date End Date Surinder Sierra MD [address] [place] [address] PCP - General 08/05/07
--- OUTSIDE RECORDS SUMMARY | 2024-06-17 06:05 | XMS_ITS | Patient Health Record ---
Author Organization [facility] Address [address] [place] [address] Care Team Providers Care Porcelain Enamel Laborer Name Role Phone Dean [facility]HONE[facility], [facility] Primary Care Provider Anshul Potter Jr Unavailable Allergies Allergen (clinical drug ingredient) Drug/Non Drug Allergy documented on EMR Reaction Allergy Type Onset Date Status seasonal allergies (uncoded) Unknown Allergy Active Reason For Referral No Information Medications Medication SIG (Take, Route, Frequency, Duration) Notes Start Date End Date Status HYDROcodone-Acetaminophen 10-325 MG 1 tablet as needed Orally every 6 hrs Active Citalopram Hydrobromide 40 MG TAKE 1 TABLET BY MOUTH ONCE DAILY Oral for 90 Active Ketoconazole 2 % 1 application Zig Zag Spring Machine Operator ally Once a day for 14 day(s) [...] Once a day for 30 day(s) Active Immunizations Vaccine Route Administration Date Status Comme nts Influenza Unknown 08/23/2022 Refused Social History Tobacco Use: Social History Observation Description Date Details (start date - stop date) Former Smoker NA - NA Tobacco Use/Smoking Question Answer Notes Patient is [...] Never (0 point) Points 1 Interpretation Negative Problems Problem Type SNOMED Code ICD Code Onset Dates Problem Status W/U Status Risk Notes Problem 496338595 Colon cancer screening (Z12.11) Active confirmed Problem History of polyp of colon (situation) (926404966) Personal history of colonic polyps (Z86.010) Active confirmed Problem 193008509 Gastroesophageal reflux disease without esophagitis (K21.9) Active confirmed Problem 678613603 Right flank pain (R10.9) Active confirmed Plan Of Treatment Future Test Test Name Order Date COLONOSCOPY 08/22/2017 COLONOSCOPY 08/23/2022 Insurance Providers Payer Name Payer Address Payer Phone Subscriber Number Group Number Insured Name Patient Relationship to Insured Coverage Start Date Coverage End Date [facility] [address] [place], [place] [id number] [phone] [id number] AZALIA MCRAE Self - patient is the insured Medical (General) History Medical History History ICD Code gastroesophageal reflux disease depression elevated cholesterol Surgical History Surgery Date(Month/Year) tonsillectomy Left oophorectomy/partial salpingectomy, benign 08/06 shoulder surgery 2002 left hip replacement 08/14/22 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
--- OUTSIDE RECORDS SUMMARY | 2024-06-17 06:05 | XMS_ITS ---
Author Organization [facility] Address [address] [place] [address] Care Team Providers Care Geologist Name Role Phone Dean [facility]HONE[facility], [facility] Primary Care Provider Anshul Potter Jr REASON FOR VISIT pathology Encounters Encounter Location Date Provider Diagnosis [facility] [address] [place] [address] 04/23/2023 Anshul Medina Jr Plan Of Treatment No Information Progress Notes * AZALIA MCRAEDOB:1965 (57 yo F)Acc No.[id number]:04/23/2023 Patient:?AZALIA MCRAE :1965???Age:57 Y???Sex:Female Address:[address], [place], [address] * true * Date:? Generated for Printi ng/Fasaúlg/eTransmitting on:?06/17/2024 06:05 AM EDT
[2024-06-17 10:10] LABS: MANUAL DIFF FLAG NO
[2024-06-17 10:24] LABS: Basophils Percent Auto 0.7 % (0-2); Eosinophils Absolute Auto 0.1 X10*3/uL (0.0-0.4); Eosinophils Percent Auto 2.3 % (0-4); Hematocrit 44.9 % (37.0-47.0); Hemoglobin 14.8 g/dl (12.0-16.0); Imm Gran Abs Auto 0.01 X10*3/uL (0.00-0.03); Imm Gran Pct Auto 0.2 % (0.0-0.4); Lymphocytes Absolute Auto 1.8 X10*3/uL (1.2-4.9); Lymphocytes Percent Auto 30.7 % (20-40); Mean Corpuscular Hemoglobin 29.7 pg (27.0-33.0); Mean Corpuscular Volume 90.2 fL (80.0-98.0); Mean Platelet Volume 10.1 fL (9.4-12.3); Monocytes Absolute Auto 0.4 X10*3/uL (0.1-1.2); Monocytes Percent Auto 7.5 % (2-11); Neutrophils Absolute Auto 3.4 x10*3/uL (2.0-8.3); Neutrophils Percent Auto 58.6 % (45-73); Platelet Count 303 X10*3/uL (160-400); Red Blood Count 4.98 X10*6/uL (4.20-5.50); White Blood Count 5.8 X10*3/uL (4.8-10.8)
[2024-06-17 10:32] LABS: Estimated Average Glucose 105 mg/dL; Hemoglobin A1C 130.9216 umol/L; Hemoglobin A1c % 5.3 % (<6.0); Total Hemoglobin (HGBA1C) 3838.4066 umol/L
[2024-06-17 10:49] LABS: Alanine Aminotransferase 20 U/L (0-31); Alkaline Phosphatase 153 U/L (39-117); Anion Gap 11 (12-20); Aspartate Amino Transferase 30 U/L (5-31); Bilirubin Total 0.4 mg/dL (0.0-1.0); Blood Urea Nitrogen 18 mg/dL (9-16); Calcium 9.2 mg/dL (8.4-10.2); Carbon Dioxide 27 mmol/L (22-29); Chloride 108 mmol/L (96-108); Cholesterol 206 mg/dL (<200); Estimated Glomerular Filt Rate > 60; Glucose Fasting 97 mg/dL (60-99); HDL Cholesterol 44 mg/dL (>40); LDL Cholesterol Calculated 140 mg/dL (<100); Potassium 4.4 mmol/L (3.3-5.1); Sodium 142 mmol/L (135-145); Total Protein 6.6 g/dL (6.5-8.0); Triglycerides 113 mg/dL (<150)
[2024-06-17 10:56] LABS: TSH reflex Free T4 3.88 uIU/mL (0.32-4.0)
[2024-06-21 13:52] LABS: Vitamin D 25-OH, D2 7 ng/mL; Vitamin D 25-OH, D3 33 ng/mL; Vitamin D 25-OH, Total 40 ng/mL (30-100)
== END 2024-06-17 06:03 | disposition home or self-care (01) ==
LOC: HO.MAMMO 06:02
PROVIDERS: PCP Internal Medicine; Visit Provider Internal Medicine
DX: Z12.31 Encounter for screening mammogram for malignant neoplasm of breast (principal); F33.42 Major depressive disorder, recurrent, in full remission; R79.89 Other specified abnormal findings of blood chemistry; R73.03 Prediabetes; E55.9 Vitamin D deficiency, unspecified; E66.3 Overweight; E78.9 Disorder of lipoprotein metabolism, unspecified
CPT/HCPCS: 36415; 77063; 77067; 80053; 80061; 82306; 83036; 84443; 85025

== ENCOUNTER → 2024-06-17 07:45 | Outpatient (BNV) | payer BC, SELFPAY | PROVIDERS: PCP Internal Medicine; Visit Provider Internal Medicine | DX: Z12.31 Encounter for screening mammogram for malignant neoplasm of breast (principal) | CPT/HCPCS: 77063; 77067 ==

== ENCOUNTER 2024-06-18 13:27 | Outpatient (AMB) | payer BC, SELFPAY ==
--- NOTE | 2024-06-18 13:32 | A.OFFPC_ITS ---
Vital Signs 06/18/24 13:34 Height 5 ft 6.5 in Weight 185 lb BMI 29.4 BP 128/84 Blood Pressure Location Lt brachial Position Sitting Pulse 70 Pulse Source Pulse Oximeter Pulse Oximetry (%) 97 Oxygen Delivery Method Room Air Intake Visit Reasons: PE Allergies No Known Allergies [No Known Allergies*] Allergy (Verified 06/18/24 13:40) seasonal allergies Allergy (Unknown, Uncoded 06/18/24 13:40) unknown Medication List - Last Reconciled 06/18/24 by Hailey Moran MD citalopram 40 mg PO DAILY 90 days Tobacco use date assessed: 06/18/24 Dental Screening Dental Screen Date: 06/18/24 Did you have a dental visit in the last 12 months?: Yes Did you have a dental problem in the last 6 months where you did not have access to dental care?: No Was dental information given to patient?: Patient has dentist HPI PE HPI Details History of Present Illness - The patient is a 58-year-old female pr esenting for a six-month follow-up and physical examination. - Reports wanting to reduce Citalopram d ose from 40 mg but plans to wait until summer off work due to fear of withdrawal effects. - She is experiencing emotional distress related to personal empathetic responses to homelessness and a friend's marital issues. - Ongoing management of Depressive Disor sade with Citalopram 40 mg; concerns about transition from 40 mg to 20 mg dose. - Elevated liver enzymes alkaline phosph atase noted in recent bloodwork, hist orically stable. Inquiry into potential gallbladder issues led to confirmation of past imaging in 2020, revealing fatty liver and no gallstones. - Past medical history includes two shou lder surgeries in the previous summer for arthritis management, and two hip replacements the summer prior. - Significant weight gain of 13 pounds o kevin the past year, attributed to stress and health challenges; increased from 172 lbs in May last year to 185 lbs currently. - Struggles with arthritis-related pain managed with Advil; avoid Tylenol due to liver concerns - Recent mammogram and history of balanc e issues mentioned. Health Maintenance - Advice to continue exercise and diet m odifications to manage weight loss, avoid unnecessary liver stress. - Encouraged to reduce weight to improve fatty liver condition. - Recommended to avoid Tylenol to preven t liver overload. - Discussion of taking Aleve as alternat fausto to Advil for arthritis pain. 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 Diagnostic results - Labs: Elevated liver enzyme identified , stable from previous measurements. - Imaging (2020): No gallstones identifi ed; evidence of fatty liver disease noted. Patient Instructions - Continue current dose of Citalopram (4 0 mg) despite desire to taper. - Avoid Tylenol when possible to minimiz e liver stress. - Take Aleve instead of Advil, once jarrett y or as necessary up to 12-hour intervals. - Focus on weight management through lif estyle changes. Follow-up six-month Review of Systems - General: No fever no chills - Neurological: No headaches no dizzin ess - Ear nose throat: No sore throat no hearing difficulty no ear pain - Cardiovascular: No syncope, no chest pain, no palpitations - Gastrointestinal: No nausea vomiting or diarrhea - Endocrine: No polyuria polydipsia no heat intolerance - Genitourinary: No dysuria - Skin: No new complaints Physical Exam General: Cooperative, healthy appearing, comfortable, no acute distress Orientation: Patient oriented x3 Head: Normal to inspection Ears: Within normal limit visually Nose: Normal external nose present Face and sinus: Normal facial exam Eyes: Appearance normal, extraocular movement intact pupils reactive Neck: Normal visual inspection and supple Respiratory: Normal respiratory effort and able to speak in complete sentences. Clear to auscultation, no stridor Cardiovascular: S1 and S2 RRR GI: Normal to inspection. Soft to palpation and nontender Skin: Turgor normal, no acute findings Neuro: Patient oriented x3, motor sensory intact, balance intact, tandem pass Extremities: Normal to inspection [facility] Medical History Sleep apnea Anxiety Elevated cholesterol Depression GERD (gastroesophageal reflux disease) Cataract Foreign body of right index finger Abdominal pain, RUQ LFT elevation Prediabetes Renal stone Ureteral stone Kidney stones Surgical History History of right hip replacement History of left hip replacement Hx of shoulder surgery Hx of unilateral salpingectomy History of left oophorectomy H/O eye surgery History of tonsillectomy Family History Father No problems noted. Mother No problems noted. Brother No problems noted. Brother No problems noted. Daughter No problems noted. Unknown Adopted Social History Housing: House Patient Tobacco Use Status: Former Tobacco user Tobacco use type: Cigarette Cigarette Packs Per Day: 1 Years Smoked: 10 Packs Per Year: 10 e-Cigarette/Vaping Use: Never Used Current occupational status: employed Sexual orientation: Straight/Heterosexual Gender identity: Female Cognitive needs: No Hearing needs: No Vision needs: No Questionnaire PHQ-9 Over the last 2 weeks, how often have you been bothered by any of the following problems? 1. Little interest or pleasure in doing things: not at all 2. Feeling down, depressed, or hopeless: not at all 3. Trouble falling or staying asleep, or sleeping too much: not at all 4. Feeling tired or having little energy: not at all 5. Poor appetite or overeating: not at all 6. Feeling bad about yourself - or that you are a failure or have let yourself or your family down: not at all 7. Trouble concentrating on things, such as reading the newspaper or watching television: not at all 8. Moving or speaking so slowly that other people could have noticed. Or the opposite - being so fidgety or restless that you have been moving around a lot more than usual: not at all 9. Thoughts that you would be better off or of hurting yourself in some way: not at all Total score: 0 Depression Screening Interpretation: Negative Depression Screening Done: Yes 04644 - PHQ-9 Billing: Yes Source: Developed by Drs. Julian Pal, Wanda Valenzuela, Donnie Ibanez and colleagues, with an educational arvin from [email or web address]. Thrive Questionnaire Date Thrive assessed: 06/18/24 I am a: Patient What is your living situation today?: I choose not to answer this question Within the past 12 months, did the food you bought not last and you didn't have the money to get more?: I choose not to answer this question Within the past 12 months, did you worry whether your food would run out before you got money to buy more?: I choose not to answer this question Do you have trouble paying for medicines?: I choose not to answer this question Do you have trouble getting transportation to medical appointments?: I choose not to answer this question Do you have trouble paying your heating and electricity bill?: I choose not to answer this question Do you have trouble taking care of your child, family member or friend?: I choose not to answer this question Do you have trouble with day-to-day activities such as bathing, preparing meals, shopping, managing finances, etc.?: I choose not to answer this question Are you currently unemployed and looking for a job?: I choose not to answer this question Are you interested in more education?: No Please select the resources that you would like help with: None Currently or been in a relationship where the following occur: I choose not to answer THRIVE Score: 0 AUDIT C Alcohol Use Questionnaire (AUDIT-C) 1. How often do you have a drink containing alcohol?: Never 3. How often do you have six or more drinks on one occasion?: Never Total Score: 0 Score Reviewed/Action Taken: Yes NANETTE-7 AMB Questionnaire NANETTE-7 Date NANETTE - 7 assessed: 06/18/24 Feeling nervous, anxious, or on edge: 0 = Not at all Not being able to stop or control worryin = Not at all Worrying too much about different things: 0 = Not at all Trouble relaxin = Not at all Being so restless that it is hard to sit still: 0 = Not at all Becoming easily annoyed or irritable: 0 = Not at all Feeling afraid as if something awful might happen: 0 = Not at all Total NANETTE-7 score (0-4 normal; 5-9 mild; 10-14 moderate; 15-21 severe): 0 Source: Developed by Drs. Julian Pal, Wanda Valenzuela, Donnie Ibanez and colleagues, with an educational arvin from [email or web address]. NANETTE-7 Assessment Billing NANETTE-7 Assessment Tool: NANETTE-7 Assessment 78922 Physical exam (Primary Care) Vital Signs: Last Vital Signs Pulse 70 06/18/24 13:34 BP 128/84 06/18/24 13:34 Pulse Ox 97 06/18/24 13:34 Oxygen Delivery Method Room Air 06/18/24 13:34 BMI result Body Mass Index 29.4 Tobacco/Smoking Status: Tobacco use Status Tobacco use date assessed 06/18/24 06/18/24 13:41 Patient Tobacco Use Status Former Tobacco user 06/18/24 13:36 Tobacco use type Cigarette 06/18/24 13:36 e-Cigarette/Vaping Use Never Used 06/18/24 13:36 PHQ-9: PHQ-9 Score PHQ-9: Total score 0 06/18/24 13:41 Depression Screening Interpretation: Negative Thrive Assessment: Date of Thrive Assessment Date Thrive assessed 06/18/24 06/18/24 13:41 Currently or been in a relationship where the following occur: I choose not to answer Coding Level of Care Code Est Pt Level 3 (75700) Est Pt Prev Care 40-64y(40390) Diagnoses Encounter for general adult medical examination with abnormal findings Z00.01 Lipid disorder E78.9 Recurrent major depressive disorder, in full remission F33.42 Active/Remission status: in full remission LFT elevation R79.89 Overweight (BMI 25.0-29.9) E66.3 Additional Codes NANETTE-7 Assessment Billing - NANETTE-7 Assessment Tool: NANETTE-7 Assessment 72131 ([id number]) PHQ-9 - 68740 - PHQ-9 Billing: Yes ([id number]) Assessment & Plan Assessment & Plan (1) Encounter for general adult medical examination with abnormal findings: Code(s): Z00.01 - Encounter for general adult medical examination with abnormal findings Category: Medical (2) Lipid disorder: Code(s): E78.9 - Disorder of lipoprotein metabolism, unspecified Category: Medical (3) Depression, major, recurrent: Code(s): F33.9 - Major depressive disorder, recurrent, unspecified Category: Medical Qualifiers: Active/Remission status: in full remission Qualified Code(s): F33.42 - Major depressive disorder, recurrent, in full remission (4) LFT elevation: Code(s): R79.89 - Other specified abnormal findings of blood chemistry Category: Medical (5) Overweight (BMI 25.0-29.9): Code(s): E66.3 - Overweight Category: Medical Plan History of Present Illness - The patient is a 58-year-old female presenting for a six-month follow-up and physical examination. - Reports wanting to reduce Citalopram dose from 40 mg but plans to wait until summer off work due to fear of withdrawal effects. - She is experiencing emotional distress related to personal empathetic responses to homelessness and a friend's marital issues. - Ongoing management of Depressive Disorder with Citalopram 40 mg; concerns about transition from 40 mg to 20 mg dose. - Elevated liver enzymes alkaline phosphatase noted in recent bloodwork, historically stable. Inquiry into potential gallbladder issues led to confirmation of past imaging in 2020, revealing fatty liver and no gallstones. - Past medical history includes two shoulder surgeries in the previous summer for arthritis management, and two hip replacements the summer prior. - Significant weight gain of 13 pounds over the past year, attributed to stress and health challenges; increased from 172 lbs in May last year to 185 lbs currently. - Struggles with arthritis-related pain managed with Advil; avoid Tylenol due to liver concerns - Recent mammogram and history of balance issues mentioned. Health Maintenance - Advice to continue exercise and diet modifications to manage weight loss, avoid unnecessary liver stress. - Encouraged to reduce weight to improve fatty liver condition. - Recommended to avoid Tylenol to prevent liver overload. - Discussion of taking Aleve as alternative to Advil for arthritis pain. 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 Diagnostic results - Labs: Elevated liver enzyme identified, stable from previous measurements. - Imaging (2020): No gallstones identified; evidence of fatty liver disease noted. Patient Instructions - Continue current dose of Citalopram (40 mg) despite desire to taper. - Avoid Tylenol when possible to minimize liver stress. - Take Aleve instead of Advil, once daily or as necessary up to 12-hour intervals. - Focus on weight management through lifestyle changes. Follow-up six-month Orders: Orders Complete Blood Count Auto Diff 5 Months E66.3 - Overweight, E78.9 - Disorder of lipoprotein metabolism, unspecified, F33.42 - Major depressive disorder, recurrent, in full remission, R79.89 - Other specified abnormal findings of blood chemistry, Z00.01 - Encounter for general adult medical examination with abnormal findings Comprehensive [place]. Panel Fast 5 Months E66.3 - Overweight, E78.9 - Disorder of lipoprotein metabolism, unspecified, F33.42 - Major depressive disorder, recurrent, in full remission, R79.89 - Other specified abnormal findings of blood chemistry, Z00.01 - Encounter for general adult medical examination with abnormal findings Lipid Panel 5 Months E66.3 - Overweight, E78.9 - Disorder of lipoprotein metabolism, unspecified, F33.42 - Major depressive disorder, recurrent, in full remission, R79.89 - Other specified abnormal findings of blood chemistry, Z00.01 - Encounter for general adult medical examination with abnormal findings
[2024-06-18 13:34] VITALS: BP 128/84; PULSE 70; O2SAT 97; BMI 29.4
--- OUTSIDE RECORDS SUMMARY | 2024-06-18 15:57 | XMS_ITS ---
Author Organization [facility] Address [address] [place] [address] Care Team Providers Care Billing Adjudicator Name Role Phone Dean MAHONEY, [facility] Primary Care Provider Anshul Potter Jr [phone] REASON FOR VISIT pathology Encounters Encounter Location Date Provider Diagnosis [facility] [address] [place] [address] 04/23/2023 Anshul Medina Jr Plan Of Treatment No Information Progress Notes * AZALIA MCRAEDOB:1965 (57 yo F)Acc No.[id number]:04/23/2023 Patient:?AZALIA MCRAE :1965???Age:57 Y???Sex:Female Address:[address], [place], [address] * true * Date:? Generated for Printi ng/Fasaúlg/eTransmitting on:?06/18/2024 03:56 PM EDT
--- OUTSIDE RECORDS SUMMARY | 2024-06-18 15:57 | XMS_ITS | Patient Health Record ---
Author Organization [facility] Address [address] [place] [address] Care Team Providers Care House Officer Name Role Phone Dean [facility]HONE[facility], [facility] Primary Care Provider Anshul Potter Jr Unavailable [phone] Allergies Allergen (clinical drug ingredient) Drug/Non Drug [...] 90 Active Ketoconazole 2 % 1 application Academy Education Director ally Once a day for 14 day(s) [...] Problem Status W/U Status Risk Notes Problem 988904015 Colon cancer screening (Z12.11) Active confirmed Problem History of polyp of colon (situation) (603023715) Personal history of colonic polyps (Z86.010) Active confirmed Problem [id number] Gastroesophageal reflux disease without esophagitis (K21.9) Active confirmed Problem [id number] Right flank pain (R10.9) Active confirmed Plan Of Treatment Future Test Test Name Order Date COLONOSCOPY 08/22/2017 COLONOSCOPY 08/23/2022 Insurance Providers Payer Name Payer Address Payer Phone Subscriber Number Group Number Insured Name Patient Relationship to Insured Coverage Start Date Coverage End Date [facility] [address] [place], [place] [id number] AZALIA MCRAE Self - patient is the insured Medical (General) History Medical History History ICD Code gastroesophageal reflux disease depression elevated cholesterol Surgical History Surgery Date(Month/Year) tonsillectomy Left oophorectomy/partial salpingectomy, benign 08/06 shoulder surgery 2002 left hip replacement 08/14/22 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
--- OUTSIDE RECORDS SUMMARY | 2024-06-18 15:57 | XMS_ITS | Patient Health Record ---
Author Organization [facility] [place] Address [address] [facility] [facility] [place] [address] Care Team Providers Care Executive Administrative Assistant Name Role Phone Dean MAHONEY, [facility] Primary [facility] Provider Huber Rosales Unavailable [phone] Allergies Allergen (clinical drug ingredient) Drug/Non Drug [...] Treatment Pending Test Test Name Order Date 18748 I&D ABSCESS- SIMPLE,SINGLE 023 Insurance Providers Payer Name Payer Address Payer Phone Subscriber Number Group Number Insured Name Patient Relationship to Insured Coverage Start Date Coverage End Date [facility] [address] [place] [address] [id number] Benny Cooper Spouse - patient is the spouse of the insured Medical (General) History Medical History History ICD Code Anxiety Arthritis Back,Hip,and Knee pain Cataracts covid-19 Depression Gall bladder problems Reflux ( GERD) Chicken pox Surgical History Surgery Date(Month/Year) tonsillectomy cyst removal shoulder surgery cataract surgery 01/17,02/16 5x Juan 2021
--- OUTSIDE RECORDS SUMMARY | 2024-06-18 15:57 | XMS_ITS | Clinical Summary ---
Author Organization [facility] Address [address] [place] [address] Care Team Providers Care Parking Cashier Name Role Phone Surinder Sierra MD Primary Care Provider [phone] Social History Tobacco Use Types Packs/Day Years [...] age to complete this topic Care Teams Parking Cashier Relationship Specialty Start Date End Date Surinder Sierra MD [address] [place] [address] PCP - General 08/05/07
--- OUTSIDE RECORDS SUMMARY | 2024-06-18 15:57 | XMS_ITS ---
Author Organization [facility] Address [address] [place] [address] Care Team Providers Care Telemetry Tech Name Role Phone Dean [facility], [facility] Primary [facility] Provider Anshul Potter Jr REASON FOR VISIT colon screening Problems Problem Type SNOMED Code ICD Code Onset Dates Problem Status W/U Status Risk Notes Problem History of polyp of colon (situation) (737391648) Personal history of colonic polyps (Z86.010) Active confirmed Encounters Encounter Location Date Provider Diagnosis [facility] Outpatient [address] [place] [phone] 04/17/2023 Anshul Medina Jr Encounter for screening [...] Notes * AZALIA MCRAEDOB:1965 (58 yo F)Acc No.[id number]:04/17/2023 COLON WITH MAC Patient:?AZALIA MCRAE Provider:?Anshul Medina MD :1965???Age:57 Y???Sex:Female D ate:04/17/2023 Address:[address] [place] [address], [place] Pcp:Hailey Moran MD Subjective: * Chief Complaints: * ???1. Colon screening. * Medical History:? Objective: * Vitals:? Assessment: * Assessment: 1.?Encounter for screening c olonoscopy - Z12.11 (Primary)???2.?Personal history of colonic polyps - Z86.010???3.?Colon polyps - K63.5??? Plan: * Treatment: * Procedure Codes:?72194 LESIO N REMOVAL COLONOSCOPY * Preventive Medicine:? [...] MD Date:?0 04/17/2023 Generated for Ismael grey/Zenia/eTransmitting on:?06/18/2024 03:57 PM EDT
== END 2024-06-18 15:12 | disposition home or self-care (01) ==
LOC: HO.HMCC 13:28
PROVIDERS: PCP Internal Medicine; Visit Provider Internal Medicine
DX: Z00.01 Encounter for general adult medical examination with abnormal findings (principal); E78.9 Disorder of lipoprotein metabolism, unspecified; E66.3 Overweight; Z68.29 Body mass index [BMI] 29.0-29.9, adult; F33.42 Major depressive disorder, recurrent, in full remission; R79.89 Other specified abnormal findings of blood chemistry

== ENCOUNTER → 2024-06-18 13:27 | Outpatient (BNVA) | payer BC, SELFPAY | PROVIDERS: PCP Internal Medicine; Visit Provider Internal Medicine | DX: Z00.01 Encounter for general adult medical examination with abnormal findings (principal); E78.9 Disorder of lipoprotein metabolism, unspecified; F33.42 Major depressive disorder, recurrent, in full remission; R79.89 Other specified abnormal findings of blood chemistry; E66.3 Overweight; Z68.29 Body mass index [BMI] 29.0-29.9, adult; Z79.899 Other long term (current) drug therapy | CPT/HCPCS: 96127 ==

== ENCOUNTER 2024-10-14 15:33 | Outpatient (AMB) | payer BC, SELFPAY ==
[2024-10-14 15:53] VITALS: BP 108/72; PULSE 72; TEMP 36.9; O2SAT 99; BMI 29.8
--- NOTE | 2024-10-14 15:53 | AM.OFFWIN_ITS ---
Intake Vital Signs 10/14/24 15:53 Height 5 ft 6.5 in Weight 187 lb 4 oz BMI 29.8 BP 108/72 Blood Pressure Location Rt brachial Position Sitting Pulse 72 Pulse Source Pulse Oximeter Temp 98.4 F Temp Source Oral Pulse Oximetry (%) 99 Oxygen Delivery Method Room Air Intake Visit Reasons: EP Irritation above lip? 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 - The lip scar appeared approximately on e year ago following a waxing procedure, initially suspected to be an allergic reaction. - The redness has been persistent, with episodes of crusting and throbbing to the area. - She has had waxing done again and the redness returns. - She has no discharge or blisters. - She has no history of oral herpes. - She has not put anything on the area. - She denies new lotions, soaps, make-up , foods, medications, detergents, or pets. Physical Exam General: Cooperative, healthy appearing, comfortable, no acute distress and well developed Orientation: Patient oriented x3 Limitations: No limitations Mouth: normal, moist oral mucosa Neck: Normal visual inspection and Yes full ROM. No lymphadenopathy noted. Respiratory: Normal respiratory effort and able to speak in complete sentences. Clear to auscultation bilaterally. No w/r/r noted. Cardiovascular: RRR, no m/r/g noted. Normal S1 and S2 Skin: Flat, non-tender, erythematous, dry patch noted on the right upper lip. No blisters noted. No crusting noted. No flaking noted. No discharge noted. No lesions. Patient was informed and verbally consented to the use of an ambient scribe for clinic note documentation during this visit [facility] Medical History Sleep apnea Anxiety Elevated cholesterol Depression GERD (gastroesophageal reflux disease) Cataract Foreign body of right index finger Abdominal pain, RUQ LFT elevation Prediabetes Renal stone Ureteral stone Kidney stones Surgical History History of right hip replacement History of left hip replacement Hx of shoulder surgery Hx of unilateral salpingectomy History of left oophorectomy H/O eye surgery History of tonsillectomy Family History Father No problems noted. Mother No problems noted. Brother No problems noted. Brother No problems noted. Daughter No problems noted. Unknown Adopted Social History Housing: House Patient Tobacco Use Status: Former Tobacco user Tobacco use type: Cigarette Cigarette Packs Per Day: 1 Years Smoked: 10 e-Cigarette/Vaping Use: Never Used Patient : No Current occupational status: employed Sexual orientation: Straight/Heterosexual Gender identity: Female Cognitive needs: No Hearing needs: No Vision needs: No Review of Systems Const All systems reviewed & are unremarkable except as noted in HPI and below Physical Exam Vital Signs: Last Vital Signs Temp 98.4 F 10/14/24 15:53 Pulse 72 10/14/24 15:53 BP 108/72 10/14/24 15:53 Pulse Ox 99 10/14/24 15:53 Oxygen Delivery Method Room Air 10/14/24 15:53 BMI result Body Mass Index 29.8 Assessment & Plan Assessment & Plan (1) Rash: Code(s): R21 - Rash and other nonspecific skin eruption Plan Most likely dermatitis from waxing vs burn Plan - bactroban ointment to the lip BID - apply sunscreen to - use vitamin D to the area - follow up with derm - follow up with her PCP Medications: New mupirocin 2% 1 appl topical TID 22 grams 0RF Coding Level of Care Code Est Pt Level 3 (75269) Diagnoses Rash R21
--- OUTSIDE RECORDS SUMMARY | 2024-10-14 16:50 | XMS_ITS | Clinical Summary ---
Author Organization [facility] Address [address] [place] [address] Phone Care Team Providers Care Apron Trimmer Name Role Phone Hailey Moran MD Primary Care Provider [phone] Social History Tobacco Use Types Packs/Day Years Used Date Smoking Tobacco: Never Assessed Education Answer Date Recorded Are you interested in more education? Not on armando e 06/23/2022 Are you concerned about learning? Not on file 06/23/2022 No 06/23/2022 No 06/23/2022 Digital Access Answer Date Recorded No 07/22/2022 No 07/22/2022 No 07/22/2022 Reliable internet access at home? Not on file 07/22/2022 Device with a working camera? Not on file Comments Unknown Sex and Gender Information Value Date Recorded Sex Assigned at Not on file Legal Sex Female 9:40 PM EDT Gender Identity Not on file Sexual Orientation Not on file Plan of Treatment Health Maintenance Due Date Last Done Comments Adult Td,Tdap Booster 1965 LIPID PANEL 1965 DEPRESSION SCREENING 1977 SMOKING Hx and SMOKELESS TOBACCO SCREENING 1978 HEPATITIS C SCREENING 12/08/1983 HIV ONE-TIME SCREENING (18-6 5 YEARS) 12/08/1983 PAP SMEAR 1986 COLOGUARD 2010 COLONOSCOPY 2010 COLORECTAL CANCER SCREENING 2010 FIT TEST 2010 FOBT 2010 SIGMOIDOSCOPY 2010 VIRTUAL COLONOSCOPY 2010 PNEUMOCOCCAL VACCINES (50+ years) (1 of 1 - PCV) 12/08/2015 ZOSTER VACCINES (1 of 2) 12/08/2015 MAMMOGRAM 09/22/2021 09/23/2019 COVID-19 VACCINE (2023-2 5 season) 2023 06/13/2020, 05/16/2020 HEPATITIS A VACCINES Aged Out No long er eligible based on patient's age to complete this topic HIB VACCINES Aged Out No longer eligi ble based on patient's age to complete this topic MENINGOCOCCAL VACCINES (ACWY) Aged Out No longer eligible based on patient's age to complete this topic MENINGOCOCCAL VACCINES (B) Aged Out N o longer eligible based on patient's age to complete this topic Medical Devices Not on file Procedures Procedure Name Priority Date/Time Associated Diagnosis Comments MAMMOGRAPHY Routine 09/23/2019 from Last 3 Months or Most Recently Relevant to Health Maintenance Results * MAMMOGRAPHY FOR RESULT ENTRY ONLY (09/23/2019) Hailey Moran MD HEALTH MAINTENANCE Final Result from Last 3 Months or Most Recently Relevant to Health Maintenance Insurance [facility] Member Subscriber Plan / Payer (Ef fective 2001-Present) Name:Anabel Cooper Relation to Subscriber:Spouse Name:KENNETHBENNY Sandhu Date of :2007 (Home) Address: [address] [place] [address] Payer ID:[id number] (NAIC) Group ID:[id number] Type:PPO Address: [facility] [address] [place] [id number] [facility] [address] [facility] Care Teams Apron Trimmer Relationship Specialty Start Date End Date Hailey Moran MD [address] [place] PCP - General Internal Medicine 10/04/18 Additional Source Comments The information contained in this document represents components of the legal health record. It is not the complete legal health record.[facility]
--- OUTSIDE RECORDS SUMMARY | 2024-10-14 16:50 | XMS_ITS | Patient Health Record ---
Author Organization [facility] Address [address] [place] [address] Care Team Providers Care Shingles Roofer Helper Name Role Phone [facility] Primary [facility] Provider Anshul Potter Jr Unavailable [...] 90 Active Ketoconazole 2 % 1 application Regulatory Technician ally Once a day for 14 day(s) [...] Problem Status W/U Status Risk Notes Problem 751217024 Colon cancer screening (Z12.11) Active confirmed Problem History of polyp of colon (situation) (296476328) Personal history of colonic polyps (Z86.010) Active confirmed Problem 838153809 Gastroesophageal reflux disease without esophagitis (K21.9) Active confirmed Problem 634292455 Right flank pain (R10.9) Active confirmed Plan Of Treatment Future Test Test Name Order Date COLONOSCOPY 08/22/2017 COLONOSCOPY 08/23/2022 Insurance Providers Payer Name Payer Address Payer Phone Subscriber Number Group Number Insured Name Patient Relationship to Insured Coverage Start Date Coverage End Date [facility] [address] [place], [place] [id number] AZALIA MCRAE Self - patient is the insured Medical (General) History Medical History History ICD Code gastroesophageal reflux disease depression elevated cholesterol Surgical History Surgery Date(Month/Year) tonsillectomy Left oophorectomy/partial salpingectomy, benign 08/06 shoulder surgery 2002 left hip replacement 08/14/22 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
--- OUTSIDE RECORDS SUMMARY | 2024-10-14 16:50 | XMS_ITS | Patient Health Record ---
Author Organization [facility] [place] Address [address] [facility] [place] [address] Care Team Providers Care Gis Programmer Name Role Phone Dean [facility] Primary Care Provider Huber Rosales Unavailable [phone] Allergies Allergen (clinical drug ingredient) Drug/Non Drug Allergy documented on EMR Reaction Allergy Type Onset Date Status Latex Latex Unknown Allergy Active Reason For Referral No Information Medications Medication SIG (Take, Route, Frequency, Duration) Notes Start Date End Date Status Cephalexin 500 MG 1 capsule Orally ra ry 12 hrs; Duration: 10 days Active Ketoconazole 2 % External; Duration: 30 Active Citalopram Hydrobromide 40 MG as [...] Treatment Pending Test Test Name Order Date 75198 I&D ABSCESS- SIMPLE,SINGLE 023 Insurance Providers Payer Name Payer Address Payer Phone Subscriber Number Group Number Insured Name Patient Relationship to Insured Coverage Start Date Coverage End Date [facility] [address] [place] [address] [phone] [id number] Benny Cooper Spouse - patient is the spouse of the insured Medical (General) History Medical History History ICD Code Anxiety Arthritis Back,Hip,and Knee pain Cataracts covid-19 Depression Gall bladder problems Reflux ( GERD) Chicken pox Surgical History Surgery Date(Month/Year) tonsillectomy cyst removal shoulder surgery cataract surgery 01/17,02/16 5x Juan 2021
--- OUTSIDE RECORDS SUMMARY | 2024-10-14 16:50 | XMS_ITS | Clinical Summary ---
Author Organization [facility] ity Address [address] [place] [address] Care Team Providers Care Handle Assembler Name Role Phone Surinder Sierra MD Primary Care Provider [phone] Social History Tobacco Use Types Packs/Day Years [...] Vaccine (1 - 2023-2 5 season) 2023 Depression Screening 02/27/2024 Influenza Vaccine (#1) 2024 HIB Vaccines Aged Out No longer [...] age to complete this topic Care Teams Handle Assembler Relationship Specialty Start Date End Date Surinder Sierra MD [address] [place] [address] PCP - General 08/05/07
== END 2024-10-14 16:42 | disposition home or self-care (01) ==
PROVIDERS: PCP Internal Medicine; Visit Provider Physician Assistant Medical
DX: R21 Rash and other nonspecific skin eruption (principal)

== ENCOUNTER 2024-12-08 07:47 | Outpatient (AMB) | payer BC, SELFPAY ==
--- OUTSIDE RECORDS SUMMARY | 2024-12-08 07:50 | XMS_ITS | Encounter Summary ---
Author Organization [facility] Address [address] [place] [address] Phone Care Team Providers Care Clinical Appeals Auditor Name Role Phone Hailey Moran MD Primary Care Provider [phone] Encounter Details Date Type Department Care Team (Latest Contact Info) Description 01/24/2021 Transcribe Orders Virtual Department [address] [place] [address] North Peña MD [address] [place] [address] [email or web address] Pain in thoracic spine (Primary Dx); Cervicalgia Social History Tobacco Use Types Packs/Day Years Used Date Smoking Tobacco: Never Assessed Comments Unknown Sex and Gender Information Value Date Recorded Sex Assigned at Not on file Legal Sex Female 9:40 PM EDT Gender Identity Not on file Sexual Orientation Not on file documented as of this encounter Plan of Treatment Not on file documented as of this encounter Visit Diagnoses Diagnosis Pain in thoracic spine- Primary Cervicalgia documented in this encounter Care Teams Clinical Appeals Auditor Relationship Specialty Start Date End Date Hailey Moran MD [address] [place] [address] PCP - General Internal Medicine 10/04/18 documented as of this encounter Additional Source Comments The information contained in this document represents components of the legal health record. It is not the complete legal health record.[facility]
--- OUTSIDE RECORDS SUMMARY | 2024-12-08 07:50 | XMS_ITS | Clinical Summary ---
Author Organization [facility] Address [address] [place] [address] Phone Care Team Providers Care Compliance Clerk Name Role Phone Hailey Moran MD Primary Care Provider [phone] Social History Tobacco Use Types Packs/Day Years [...] (1 of 2) 12/08/2015 MAMMOGRAM 09/22/2021 09/23/2019 INFLUENZA VACCINE (#1) 2024 , 10/28/2018, 02/22/2015 COVID-19 VACCINE (3 - 2024-2 6 season) 2024 06/13/2020, 05/16/2020 RSV VACCINE (1 - 1-dose 75+ series) 2040 HEPATITIS A VACCINES Aged Out No long [...] Most Recently Relevant to Health Maintenance Insurance [facility] [address] [facility] Care Teams Compliance Clerk Relationship Specialty Start Date End Date Hailey Moran MD [address] [place] [address] PCP - General Internal Medicine 10/04/18 Additional Source Comments The information contained in this document represents components of the legal health record. It is not the complete legal health record.[facility]
--- OUTSIDE RECORDS SUMMARY | 2024-12-08 07:50 | XMS_ITS | Clinical Summary ---
Author Organization [facility] ity Address [address] [place] [address] Care Team Providers Care Campus Chaplain Name Role Phone Surinder Sierra MD Primary Care Provider [phone] Social History Tobacco Use Types Packs/Day Years [...] 12/08/2015 Zoster Vaccines (1 of 2) 12/08/2015 Depression Screening 02/27/2024 COVID-19 Vaccine (1 - 2023-2 5 season) 2024 Influenza Vaccine (#1) 2024 RSV Immunization Adult Patie nts (1 - 1-dose 75+ series) 2040 HIB Vaccines Aged Out No longer eligi [...] age to complete this topic Care Teams Campus Chaplain Relationship Specialty Start Date End Date Surinder Sierra MD [address] [place] [address] PCP - General 08/05/07
[2024-12-08 07:51] VITALS: BP 112/80; PULSE 68; RESP 15; TEMP 36.9; O2SAT 98; BMI 29.1
--- NOTE | 2024-12-08 07:51 | MHC.OFFWIV ---
Intake Vital Signs 12/08/24 07:51 Height 5 ft 6.5 in Weight 183 lb BMI 29.1 BP 112/80 Blood Pressure Location Rt brachial Position Sitting Respiration 15 Pulse 68 Pulse Source Pulse Oximeter Temp 98.5 F Temp Source Oral Pulse Oximetry (%) 98 Oxygen Delivery Method Room Air Intake Visit Reasons: EP-face rash Intake Note: Pt is here today c/o upper lip irritation due to using Lane hair removal Patient Tobacco Use Status: Former Tobacco user Allergies No Known Allergies (No Known Allergies*) Allergy (Verified 12/08/24 07:52) HPI HPI Comments History of Present Illness Details History - The patient is a 59-year-old female presenting with facial irritation and burning sensation following the use of a hair removal product. - She has been seen for the same thing in the past. - The issue began after a waxing session in 2022, with subsequent waxing sessions not causing similar reactions. - The patient reports a burning sensation and irritation localized to specific areas of the face. - The patient has sensitive skin and has used a sensitive formula product, which still resulted in irritation. - She has redness to the right upper lip with no lesions - Previous interventions included the use of an antibiotic cream and vitamin E, which provided some relief but did not resolve the issue completely. - The patient has an appointment with a drop wire aliner scheduled for March, but previous appointments were canceled, causing delays in specialist evaluation. - She denies other rashes or lesions. Physical Exam General: Cooperative, healthy appearing, comfortable, no acute distress and well developed Orientation: Patient oriented x3 Limitations: No limitations Mouth: normal, moist oral mucosa Neck: Normal visual inspection and Yes full ROM Respiratory: Normal respiratory effort and able to speak in complete sentences. Clear to auscultation bilaterally. No w/r/r noted. Cardiovascular: RRR, no m/r/g noted. Normal S1 and S2 Skin: Patient was informed and verbally consented to the use of an ambient scribe for clinic note documentation during this visit [facility] Medical History Sleep apnea Anxiety Elevated cholesterol Depression GERD (gastroesophageal reflux disease) Cataract Foreign body of right index finger Abdominal pain, RUQ LFT elevation Prediabetes Renal stone Ureteral stone Kidney stones Surgical History History of right hip replacement History of left hip replacement Hx of shoulder surgery Hx of unilateral salpingectomy History of left oophorectomy H/O eye surgery History of tonsillectomy Family History Father No problems noted. Mother No problems noted. Brother No problems noted. Brother No problems noted. Daughter No problems noted. Unknown Adopted Social History Housing: House Patient Tobacco Use Status: Former Tobacco user Tobacco use type: Cigarette Cigarette Packs Per Day: 1 Years Smoked: 10 e-Cigarette/Vaping Use: Never Used Current occupational status: employed Sexual orientation: Straight/Heterosexual Gender identity: Female Cognitive needs: No Hearing needs: No Vision needs: No Review of Systems Const All systems reviewed & are unremarkable except as noted in HPI and below Physical Exam Vital Signs: Last Vital Signs Temp 98.5 F 12/08/24 07:51 Pulse 68 12/08/24 07:51 Resp 15 12/08/24 07:51 BP 112/80 12/08/24 07:51 Pulse Ox 98 12/08/24 07:51 Oxygen Delivery Method Room Air 12/08/24 07:51 BMI result Body Mass Index 29.1 Assessment & Plan Assessment & Plan (1) Rash: Code(s): R21 - Rash and other nonspecific skin eruption Plan Most likely contact dermatitis vs burn vs scar Plan - Continue using the prescribed antibiotic ointment three times a day for seven days to manage facial irritation. - Avoid using products with fragrance or potential irritants due to sensitive skin. - Consider using an antihistamine such as Claritin to assess if it alleviates symptoms, indicating a possible allergic reaction. - Follow up with a drop wire aliner in March for further evaluation and management. Coding Level of Care Code Est Pt Level 3 (41816) Diagnoses Rash R21
--- OUTSIDE RECORDS SUMMARY | 2024-12-08 07:51 | XMS_ITS | Patient Health Record ---
Author Organization [facility] Address [address] [place] [address] Care Team Providers Care Seed Trucker Name Role Phone Dean [facility], [facility] Primary Care Provider Anshul Potter Jr Unavailable [phone] 1 Allergies Allergen (clinical drug ingredient) Drug/Non Drug [...] TAKE 1 TABLET BY MOUTH ONCE DAILY Oral; Duration: 90 Active Ketoconazole 2 % 1 application Mid Level Java Developer ally Once a day; Duration: 14 day(s) Active MiraLax (colon prep) 17 GM/SCOOP mixed with Gatorade or Crystal Light Orally begin at 5:00 p.m. the day before the procedure; Duration: 1 day 08/23/2022 Active traMADol HCl 50 MG 1 tablet as needed O rally Once a day Active Celecoxib 200 MG 1 capsule with food Orally Once a day; Duration: 30 day(s) Active Aspirin 81 81 MG 1 tablet Orally Once a day; Duration: 30 day(s) Active Pantoprazole Sodium 40 MG 1 tablet Orall y Once a day; Duration: 30 day(s) Active Docusate Sodium 100 MG 1 capsule as need ed Orally Once a day; Duration: 30 day(s) Active Immunizations Vaccine Route Administration [...] Problem Status W/U Status Risk Notes Problem Colon cancer screening (852568408) Colon cancer screening (Z12.11) Active confirmed Problem History of polyp of colon (situation) (117054438) Personal history of colonic polyps (Z86.010) Active confirmed Problem Gastroesophageal reflux disease without esophagitis (465970055) Gastroesophageal reflux disease without esophagitis (K21.9) Active confirmed Problem Right flank pain (573787329) Right flank pain (R10.9) Active confirmed Plan Of Treatment Future Test Test Name Order Date COLONOSCOPY 08/22/2017 COLONOSCOPY 08/23/2022 Insurance Providers Payer Name Payer Address Payer Phone Subscriber Number Group Number Insured Name Patient Relationship to Insured Coverage Start Date Coverage End Date [facility] [address] [place], [place] [id number] AZALIA MCRAE Self - patient is the insured Medical (General) History Medical History History ICD Code gastroesophageal reflux disease depression elevated cholesterol Surgical History Surgery Date(Month/Year) tonsillectomy Left oophorectomy/partial salpingectomy, benign 08/06 shoulder surgery 2002 left hip replacement 08/14/22 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
--- OUTSIDE RECORDS SUMMARY | 2024-12-08 07:51 | XMS_ITS | Patient Health Record ---
Author Organization [facility] [place] Address [address] [facility] [place] [address] Care Team Providers Care Flat Grinder Operator Name Role Phone Dean [facility]ONEY, [facility] Primary Care Provider Huber Rosales Unavailable [phone] Allergies Allergen (clinical drug ingredient) Drug/Non Drug [...] Treatment Pending Test Test Name Order Date 09780 I&D ABSCESS- SIMPLE,SINGLE 023 Insurance Providers Payer Name Payer Address Payer Phone Subscriber Number Group Number Insured Name Patient Relationship to Insured Coverage Start Date Coverage End Date [facility] [address] [place] [address] [id number] Benny Cooper Spouse - patient is the spouse of the insured Medical (General) History Medical History History ICD Code Anxiety Arthritis Back,Hip,and Knee pain Cataracts covid-19 Depression Gall bladder problems Reflux ( GERD) Chicken pox Surgical History Surgery Date(Month/Year) tonsillectomy cyst removal shoulder surgery cataract surgery 01/17,02/16 5x Juan 2021
--- OUTSIDE RECORDS SUMMARY | 2024-12-08 07:51 | XMS_ITS | Encounter Summary ---
Author Organization [facility] Address [address] [place] [address] Phone Care Team Providers Care Highway Design Engineer Name Role Phone Hailey Moran MD Primary Care Provider [phone] Encounter Details Date Type Department Care Team (Late st Contact Info) Description 10/04/[address] [facility], X-Ray - [address] [address] [place] Peña MD [address] [place] [address] [email or web address] Pain in left hip Social History Tobacco Use Types Packs/Day Years Used Date Smoking Tobacco: Never Assessed Comments Unknown Sex and Gender Information Value Date Recorded Sex Assigned at Not on file Legal Sex Female 9:40 PM EDT Gender Identity Not on file Sexual Orientation Not on file documented as of this encounter Plan of Treatment Not on file documented as of this encounter Results * XR HIP 2 VW LEFT PLUS PELVIS (10/04/2018 10:52 AM EDT) Anatomical Region Laterality Modality Hip, Pelvis Radiographic Kendy ging 10/04/2018 11:1 2 AM EDT Impressions 10/04/2018 11:14 AM EDT Radiographic findings suggesting CAM impingement without other significant bony abnormality related to the hip. No acute pelvic abnormality apparent. POS - [id number] Narrative 10/04/2018 11:14 AM EDT COMPARISON: 06/20/2016 pelvis FINDINGS: AP views of the pelvis reveal no significant interval change from the prior study, with mild sclerosis of the pubic symphysis again seen and no traumatic or destructive skeletal abnormality apparent. There is a chronic lower lumbar scoliotic curvature. AP neutral and frog-lateral views of left hip disclose no traumatic or destructive bony abnormality. Joint space is stable in width and no progressive periarticular spurring is identified. No aberrant soft tissue calcifications of significance are seen. There is minimal cortical thickening at the femoral head/neck junction. Procedure Note Cassidy Bowie MD - 10/04/2018 COMPARISON: 06/20/2016 pelvis FINDINGS: AP views of the pelvis reveal no significant interval change from theprior study, with mild sclerosis of the pubic symphysis again seen and notraumatic or destructive skeletal abnormality apparent. There is achronic lower lumbar scoliotic curvature. AP neutral and frog-lateral views of left hip disclose no traumatic ordestructive bony abnormality. Joint space is stable in width and noprogressive periarticular spurring is identified. No aberrant soft tissuecalcifications of significance are seen. There is minimal corticalthickening at the femoral head/neck junction. IMPRESSION: Radiographic findings suggesting CAM impingement without other significantbony abnormality related to the hip. No acute pelvic abnormalityapparent. POS - [id number] us North Peña MD IMG XR PELVIS Final R esult documented in this encounter Visit Diagnoses Diagnosis Pain in left hip Pain in left hip documented in this encounter Care Teams Highway Design Engineer Relationship Specialty Start Date End Date Hailey Moran MD [facility] [place] [address] PCP - General Internal Medicine 10/04/18 documented as of this encounter Additional Source Comments The information contained in this document represents components of the legal health record. It is not the complete legal health record.[facility]
== END 2024-12-08 09:07 | disposition home or self-care (01) ==
PROVIDERS: PCP Internal Medicine; Visit Provider Physician Assistant Medical
DX: R21 Rash and other nonspecific skin eruption (principal)

== ENCOUNTER 2024-12-24 08:17 | Outpatient (AMB) | payer BC, SELFPAY ==
--- NOTE | 2024-12-24 08:21 | AM.OFFWIN_ITS ---
Intake Vital Signs 12/24/24 08:22 Height 5 ft 6.5 in Weight 184 lb BMI 29.3 BP 120/82 Blood Pressure Location Lt brachial Position Sitting Pulse 93 Pulse Source Pulse Oximeter Temp 98.7 F Temp Source Oral Pulse Oximetry (%) 96 Intake Visit Reasons: ep fever for few day no appetite Intake Note: Patient presents with c/o sinus congestion, headache, cough, chest congestion, fever, loss of appetite x3 days. Patient Tobacco Use Status: Former Tobacco user Allergies No Known Allergies (No Known Allergies*) Allergy (Verified 12/24/24 08:25) Do you need a note to return to daycare/school/sports/work: Yes HPI HPI Comments History of Present Illness Details History - The patient is a 59-year-old female pr esenting with symptoms of a respiratory infection. - The symptoms began 2 days ago with diz ziness and progressed to fever, cough, and fatigue. - The patient reported a fever of 102?F, which decreased to 101?F after taking Advil. - She experienced significant coughing, leading to muscle soreness. - The patient has a history of fatty mickey er disease, which limits her use of Tylenol. - She has a history of allergic rhinitis , previously managed with allergy shots, which she has discontinued. - The patient also has arthritis, for wh ich she takes Advil regularly. Review of Systems - General: Reports fever, fatigue, and d ecreased appetite. - Respiratory: Reports cough and dyspnea . Denies wheezing. - ENT: Reports sinus pain. Denies ear pa in. All systems reviewed and are unremarkable except as noted in HPI Physical Exam General: Cooperative, healthy appearing, comfortable and no acute distress Orientation/consciousness: Patient oriented x3 Limitations: No limitations Head: Normal to inspection Ears: Hearing grossly normal bilaterally, external ears normal, EAC's with erythema Nose: Normal external nose present, Normal nares present and No nasal discharge present Face and sinus: Normal facial exam and sinuses nontender, though patient reports terrible sinus pain one day, now better Mouth: Normal oral and palatal mucosa present and moist mucous membranes Throat: tonsils normal, no exudates, uvula midline, posterior oropharynx erythema Eyes: Appearance normal, both eyes and all related structures Neck: Normal visual inspection, full ROM Respiratory: Clear to auscultation bilaterally. Normal respiratory effort, able to speak in complete sentences, actively coughing, no respiratory distress, not tachypneic, no tripod positioning and no use of accessory muscles Cardiovascular: Regular rate and rhythm. Normal S1 and S2 Skin: No rashes or lesions noted Neuro: Patient oriented x3 Extremities: Normal to inspection and Yes no clubbing, cyanosis or edema PFSH Medical History Sleep apnea Anxiety Elevated cholesterol Depression GERD (gastroesophageal reflux disease) Cataract Foreign body of right index finger Abdominal pain, RUQ LFT elevation Prediabetes Renal stone Ureteral stone Kidney stones Surgical History History of right hip replacement History of left hip replacement Hx of shoulder surgery Hx of unilateral salpingectomy History of left oophorectomy H/O eye surgery History of tonsillectomy Family History Father No problems noted. Mother No problems noted. Brother No problems noted. Brother No problems noted. Daughter No problems noted. Unknown Adopted Social History Housing: House Patient Tobacco Use Status: Former Tobacco user Tobacco use type: Cigarette Cigarette Packs Per Day: 1 Years Smoked: 10 e-Cigarette/Vaping Use: Never Used Current occupational status: employed Sexual orientation: Straight/Heterosexual Gender identity: Female Cognitive needs: No Hearing needs: No Vision needs: No Physical Exam Vital Signs: Last Vital Signs Temp 98.7 F 12/24/24 08:22 Pulse 93 12/24/24 08:22 BP 120/82 12/24/24 08:22 Pulse Ox 96 12/24/24 08:22 BMI result Body Mass Index 29.3 Assessment & Plan Assessment & Plan (1) URI, acute: Code(s): J06.9 - Acute upper respiratory infection, unspecified Plan: Plan Patient was informed and verbally consented to the use of an ambient scribe for clinic note documentation during this visit. - VSS, pt well appearing and PE unremarkable. - Plan includes symptomatic treatment with Advil for fever with sparing use of acetaminophen. - Advised to use decongestants for nasal congestion relief. - COVID-19, influenza, and RSV testing performed to rule out viral infections. - Recommended to use a neti pot for sinus relief. Orders: Orders SARS-CoV2/FLU/RSV Today R09.89 - Other specified symptoms and signs involving the circulatory and respiratory systems Coding Level of Care Code Est Pt Level 3 (30011) Diagnoses URI, acute J06.9
[2024-12-24 08:22] VITALS: BP 120/82; PULSE 93; TEMP 37.1; O2SAT 96; BMI 29.3
== END 2024-12-24 09:51 | disposition home or self-care (01) ==
PROVIDERS: PCP Internal Medicine; Visit Provider Physician Assistant
DX: J06.9 Acute upper respiratory infection, unspecified (principal)

== ENCOUNTER 2024-12-24 08:17 | Outpatient (REF) | payer BC, SELFPAY ==
--- OUTSIDE RECORDS SUMMARY | 2024-12-24 09:06 | XMS_ITS | Encounter Summary ---
Author Organization [facility] Address [address] [place] [address] Phone Care Team Providers Care Crystal Slicer Name Role Phone Hailey Moran MD Primary Care Provider [phone] Encounter Details Date Type Department Care Team (Latest Contact Info) Description 01/24/2021 Transcribe Orders Virtual Department [address] [place] [address] North Peña MD [address] [place] [address] [email or web address] Pain in thoracic spine (Primary Dx); Cervicalgia [...] Cervicalgia documented in this encounter Care Teams Crystal Slicer Relationship Specialty Start Date End Date Hailey Moran MD [address] [place] [address] PCP - General Internal Medicine 10/04/18 documented as of this encounter Additional Source Comments The information contained in this document represents components of the legal health record. It is not the complete legal health record.[facility]
--- OUTSIDE RECORDS SUMMARY | 2024-12-24 09:06 | XMS_ITS | Encounter Summary ---
Author Organization [facility] Address [address] [place] [address] Phone Care Team Providers Care Office Technologist Name Role Phone Hailey Moran MD Primary Care Provider [phone] Encounter Details Date Type Department Care Team (Late st Contact Info) Description 10/04/2018 Ancillary Orders [facility], X-Ray - [address] [address] North Peña MD [address] [place] [address] [email or web address] Pain in left hip Social History [...] hip documented in this encounter Care Teams Office Technologist Relationship Specialty Start Date End Date Hailey Moran MD [facility] [place] [address] PCP - General Internal Medicine 10/04/18 documented as of this encounter Additional Source Comments The information contained in this document represents components of the legal health record. It is not the complete legal health record.[facility]
--- OUTSIDE RECORDS SUMMARY | 2024-12-24 09:06 | XMS_ITS | Patient Health Record ---
Author [facility] [place] Address [address] [facility] [place] [address] Care Team Providers Care Rn Chemical Dependency Name Role Phone Dean MAHONEY, [facility] Primary Care Provider Huber Rosales Unavailable [phone] Allergies Allergen (clinical drug ingredient) Drug/Non Drug [...] Treatment Pending Test Test Name Order Date 82859 I&D ABSCESS- SIMPLE,SINGLE 023 Insurance Providers Payer Name Payer Address Payer Phone Subscriber Number Group Number Insured Name Patient Relationship to Insured Coverage Start Date Coverage End Date [facility] [address] [place] [address] [phone] [id number] Benny Cooper Spouse - patient is the spouse of the insured Medical (General) History Medical History History ICD Code Anxiety Arthritis Back,Hip,and Knee pain Cataracts covid-19 Depression Gall bladder problems Reflux ( GERD) Chicken pox Surgical History Surgery Date(Month/Year) tonsillectomy cyst removal shoulder surgery cataract surgery 01/17,02/16 5x Juan 2021
--- OUTSIDE RECORDS SUMMARY | 2024-12-24 09:06 | XMS_ITS | Patient Health Record ---
Author Organization [facility] Address [address] [place] [address] Care Team Providers Care Search Specialist Name Role Phone [facility], [facility] Primary Care Provider Anshul Potter Jr [...] 90 Active Ketoconazole 2 % 1 application Welding Equipment Sales Representative ally Once a day; Duration: 14 day(s) [...] Status Risk Notes Problem Colon cancer screening (158685055) Colon cancer screening (Z12.11) Active confirmed Problem History of polyp of colon (situation) (686279040) Personal history of colonic polyps (Z86.010) Active confirmed Problem Gastroesophageal reflux disease without esophagitis (121028643) Gastroesophageal reflux disease without esophagitis (K21.9) Active confirmed Problem Right flank pain (993476402) Right flank pain (R10.9) Active confirmed Plan Of Treatment Future Test Test Name Order Date COLONOSCOPY 08/22/2017 COLONOSCOPY 08/23/2022 Insurance Providers Payer Name Payer Address Payer Phone Subscriber Number Group Number Insured Name Patient Relationship to Insured Coverage Start Date Coverage End Date [facility] [address] [place], [place] [id number] AZALIA MCRAE Self - patient is the insured Medical (General) History Medical History History ICD Code gastroesophageal reflux disease depression elevated cholesterol Surgical History Surgery Date(Month/Year) tonsillectomy Left oophorectomy/partial salpingectomy, benign 08/06 shoulder surgery 2002 left hip replacement 08/14/22 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
--- OUTSIDE RECORDS SUMMARY | 2024-12-24 09:06 | XMS_ITS | Clinical Summary ---
Author Organization [facility] ity Address [address] [place] [address] Care Team Providers Care Boat Deckhand Name Role Phone Surinder Sierra MD Primary Care Provider [phone] Social History Tobacco Use Types Packs/Day Years [...] age to complete this topic Care Teams Boat Deckhand Relationship Specialty Start Date End Date Surinder Sierra MD [address] [place] [address] PCP - General 08/05/07
--- OUTSIDE RECORDS SUMMARY | 2024-12-24 09:06 | XMS_ITS | Clinical Summary ---
Author Organization [facility] Address [address] [place] [address] Phone Care Team Providers Care Automatic Pad Making Machine Operator Name Role Phone Hailey Moran MD Primary Care Provider Social History Tobacco Use Types Packs/Day Years [...] Most Recently Relevant to Health Maintenance Insurance [facility] [address] [place] [facility] Care Teams Automatic Pad Making Machine Operator Relationship Specialty Start Date End Date Hailey Moran MD [address] [place] [address] PCP - General Internal Medicine 10/04/18 Additional Source Comments The information contained in this document represents components of the legal health record. It is not the complete legal health record.[facility]
[2024-12-24 11:35] LABS: Resp Syncy Virus RNA Qual PCR NEGATIVE (Negative); SARS COV2 PCR INHOUSE POSITIVE (Negative)
== END 2024-12-24 08:18 | disposition home or self-care (01) ==
LOC: HO.LAB 08:17
PROVIDERS: Physician Assistant; PCP Internal Medicine
DX: J06.9 Acute upper respiratory infection, unspecified (principal); Z87.891 Personal history of nicotine dependence
CPT/HCPCS: 87637

== ENCOUNTER 2025-02-24 08:12 | Outpatient (AMB) | payer BC, SELFPAY ==
--- NOTE | 2025-02-24 08:18 | A.OFFPC_ITS ---
Vital Signs 02/24/25 08:19 Height 5 ft 6.5 in Weight 192 lb BMI 30.5 BP 122/86 Blood Pressure Location Rt brachial Position Sitting Respiration 17 Pulse 75 Pulse Source Pulse Oximeter Temp 98.4 F Temp Source Oral Pulse Oximetry (%) 98 Oxygen Delivery Method Room Air Intake Visit Reasons: 6 month f/u Allergies No Known Allergies (No Known Allergies*) Allergy (Verified 02/24/25 08:21) Medication List - Last Reconciled 02/24/25 by Hailey Moran MD citalopram 40 mg PO DAILY 90 days Tobacco use date assessed: 02/24/25 Dental Screening Dental Screen Date: 02/24/25 Did you have a dental visit in the last 12 months?: No Did you have a dental problem in the last 6 months where you did not have access to dental care?: No Was dental information given to patient?: Patient declined HPI HPI Comments History of Present Illness Details History of Present Illness The patient is a 59 year old female presenting for follow-up for management of chronic pain from multifocal arthritis and associated depression and anxiety. Osteoarthritis: - The patient has a history of arthritis in her neck, both shoulders, and both knees. 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 Osteitis Condensans Ilii: - The patient has a history of severe pe lvic pain stemming from osteitis condens ans of the pubic symphysis, which causes her leg to feel off balance. - She has undergone injections for this pain, with the most recent one in January, and she has an upcoming follow-up with a tint layer. - She engages in daily physical therapy exercises but notes that previous hip and shoulder surgeries prevented her from performing these exercises for a few years. - At present, her pelvic pain is describ ed as very minimal. Major Depressive Disorder: - The patient has a history of depressio n and takes citalopram 40 mg daily. - She reports feeling depressed, weak, a nd very fearful about her physical health, specifically fearing becoming disabled or needing a wheelchair. - She uses prayer and reading the Bible as coping mechanisms and is not currently engaged in therapy. 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 - Advil (ibuprofen) two tablets nightly for pain. 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 - Exercise: The patient has a long histo ry of performing daily exercises, though she had to stop for a few years due to surgeries. - Functional Status: She reports that wo rk is difficult, causing her to limp by the end of the day, and she feels vulnerable due to her physical condition. - Nutrition: Reports being health-consci ous, consuming items like spinach smoothies. - Coping Mechanisms: She uses prayer and reading her Bible to manage stress and fear. [facility] Medical History Sleep apnea Anxiety Elevated cholesterol Depression GERD (gastroesophageal reflux disease) Cataract Foreign body of right index finger Abdominal pain, RUQ LFT elevation Prediabetes Renal stone Ureteral stone Kidney stones Surgical History History of right hip replacement History of left hip replacement Hx of shoulder surgery Hx of unilateral salpingectomy History of left oophorectomy H/O eye surgery History of tonsillectomy Family History Father No problems noted. Mother No problems noted. Brother No problems noted. Brother No problems noted. Daughter No problems noted. Unknown Adopted Social History Housing: House Patient Tobacco Use Status: Former Tobacco user Tobacco use type: Cigarette Cigarette Packs Per Day: 1 Years Smoked: 10 e-Cigarette/Vaping Use: Never Used Current occupational status: employed Sexual orientation: Straight/Heterosexual Gender identity: Female Cognitive needs: No Hearing needs: No Vision needs: No Questionnaire Thrive Questionnaire Date Thrive assessed: 02/24/25 I am a: Patient What is your living situation today?: I choose not to answer this question Within the past 12 months, did the food you bought not last and you didn't have the money to get more?: I choose not to answer this question Within the past 12 months, did you worry whether your food would run out before you got money to buy more?: I choose not to answer this question Do you have trouble paying for medicines?: I choose not to answer this question Do you have trouble getting transportation to medical appointments?: I choose not to answer this question Do you have trouble paying your heating and electricity bill?: I choose not to answer this question Do you have trouble taking care of your child, family member or friend?: I choose not to answer this question Do you have trouble with day-to-day activities such as bathing, preparing meals, shopping, managing finances, etc.?: I choose not to answer this question Are you currently unemployed and looking for a job?: I choose not to answer this question Are you interested in more education?: No Please select the resources that you would like help with: None Currently or been in a relationship where the following occur: I choose not to answer THRIVE Score: 0 AUDIT C Alcohol Use Questionnaire (AUDIT-C) 1. How often do you have a drink containing alcohol?: Never 3. How often do you have six or more drinks on one occasion?: Never Total Score: 0 Score Reviewed/Action Taken: Yes NANETTE-7 AMB Questionnaire NANETTE-7 Date NANETTE - 7 assessed: 06/18/24 Source: Developed by Drs. Julian Pal, Wanda Valenzuela, Donnie Ibanez and colleagues, with an educational arvin from [email or web address]. Review of Systems Narrative Review of Systems - General: No fever no chills - Neurological: No headaches no dizziness - Ear nose throat: No sore throat no hearing difficulty no ear pain - Cardiovascular: No syncope, no chest pain, no palpitations - Gastrointestinal: No nausea vomiting or diarrhea - Endocrine: No polyuria polydipsia no heat intolerance - Genitourinary: No dysuria , no blood in urine Physical exam (Primary Care) Vital Signs: Last Vital Signs Temp 98.4 F 02/24/25 08:19 Pulse 75 02/24/25 08:19 Resp 17 02/24/25 08:19 BP 122/86 02/24/25 08:19 Pulse Ox 98 02/24/25 08:19 Oxygen Delivery Method Room Air 02/24/25 08:19 BMI result Body Mass Index 30.5 Tobacco/Smoking Status: Tobacco use Status Tobacco use date assessed 02/24/25 02/24/25 08:23 Patient Tobacco Use Status Former Tobacco user 02/24/25 08:21 Tobacco use type Cigarette 02/24/25 08:21 e-Cigarette/Vaping Use Never Used 02/24/25 08:21 Thrive Assessment: Date of Thrive Assessment Date Thrive assessed 06/11/24 02/24/25 08:45 Currently or been in a relationship where the following occur: I choose not to answer Narrative Physical Exam General: No acute distress, tearful thru out the visit HEENT: No acute findings Neck: Supple, arthritis present Respiratory system: Able to talk in full sentences, no audible wheeze Extremities: both shoulders with full ROM with some discomfort, able to lift legs wtih some discomfort at Pelvic area DRUPAL PROGRAMMER: Alert awake oriented x3 motor intact Skin: Normal turgor Coding Level of Care Code Est Pt Level 4 (06406) Diagnoses Osteitis condensans ilii M85.38 Recurrent major depressive disorder, in full remission F33.42 Active/Remission status: in full remission Primary osteoarthritis involving multiple joints M15.9 Osteoarthritis type: primary Emotional crisis F43.20 Time Spent (min) 30 Comment Most of the visit was [id number] counseling patient and listening Assessment & Plan Assessment & Plan (1) Osteitis condensans ilii: Code(s): M85.38 - Osteitis condensans, other site Category: Medical (2) Depression, major, recurrent: Code(s): F33.9 - Major depressive disorder, recurrent, unspecified Category: Medical Qualifiers: Active/Remission status: in full remission Qualified Code(s): F33.42 - Major depressive disorder, recurrent, in full remission (3) Osteoarthritis of multiple joints: Code(s): M15.9 - Polyosteoarthritis, unspecified Category: Medical Qualifiers: Osteoarthritis type: primary Qualified Code(s): M15.9 - Polyosteoarthritis, unspecified (4) Emotional crisis: Code(s): F43.20 - Adjustment disorder, unspecified Category: Medical Plan Problem List - Osteoarthritis - Osteitis condensans ilii - Chronic pain syndrome - Major Depressive Disorder - Generalized Anxiety Disorder Plan - For musculoskeletal pain, the patient was advised to rest her joints and temporarily stop her exercises, focusing on allowing her body to heal. - She was instructed to stop carrying heavy items on her shoulder and consider a wheeled bag to alleviate shoulder strain. - Recommended purchasing shoes with thick, cushioned soles, such as [employer] brand, to reduce impact from walking at work. - Advised to adjust her Advil intake to one tablet with breakfast and one with supper, rather than two tablets at night, for more consistent pain and inflammation control. - Regarding her depression, she will continue citalopram 40 mg daily. - An offer to add another medication for her mood was declined at this time. - Strongly recommended considering psychotherapy; she agreed to get contact numbers for therapists but expressed a preference to try managing on her own first. she did meet with our behaviour health coordinator today - She was reassured that her condition is manageable, and she is not at imminent risk of being in a wheelchair if she follows activity modifications. - The patient has an upcoming physical exam scheduled for August 26.
[2025-02-24 08:19] VITALS: BP 122/86; PULSE 75; RESP 17; TEMP 36.9; O2SAT 98; BMI 30.5
--- OUTSIDE RECORDS SUMMARY | 2025-02-24 09:41 | XMS_ITS | Clinical Summary ---
Author Organization [facility] Address [address] [place] [address] Phone Care Team Providers Care Director Of Database Marketing Name Role Phone Hailey Moran MD Primary Care Provider [phone] Social History Tobacco Use Types Packs/Day Years [...] Most Recently Relevant to Health Maintenance Insurance [facility] [address] [place] [facility] Care Teams Director Of Database Marketing Relationship Specialty Start Date End Date Hailey Moran MD [address] [address] PCP - General Internal Medicine 10/04/18 Additional Source Comments The information contained in this document represents components of the legal health record. It is not the complete legal health record.[facility]
--- OUTSIDE RECORDS SUMMARY | 2025-02-24 09:41 | XMS_ITS | Patient Health Record ---
Author Organization [facility] [place] Address [address] [facility] [place] [address] Care Team Providers Care Loftsman/Woman Name Role Phone Dean [facility]ONE[facility], [facility] Primary Care Provider Huber Rosales Unavailable [phone] Allergies Allergen (clinical drug ingredient) Drug/Non Drug [...] Treatment Pending Test Test Name Order Date 11621 I&D ABSCESS- SIMPLE,SINGLE 023 Insurance Providers Payer Name Payer Address Payer Phone Subscriber Number Group Number Insured Name Patient Relationship to Insured Coverage Start Date Coverage End Date [facility] [address] [place] [address] [phone] [id number] Benny Cooper Spouse - patient is the spouse of the insured Medical (General) History Medical History History ICD Code Anxiety Arthritis Back,Hip,and Knee pain Cataracts covid-19 Depression Gall bladder problems Reflux ( GERD) Chicken pox Surgical History Surgery Date(Month/Year) tonsillectomy cyst removal shoulder surgery cataract surgery 01/17,02/16 5x Juan 2021
--- OUTSIDE RECORDS SUMMARY | 2025-02-24 09:41 | XMS_ITS | Patient Health Record ---
Author Organization [facility] Address [address] [place] [address] Care Team Providers Care Advertising Manager Name Role Phone Dean [facility]ONE[facility], [facility] Primary [facility] Provider Anshul Potter Jr Unavailable [phone] Allergies Allergen (clinical drug ingredient) Drug/Non Drug Allergy documented on EMR Reaction Allergy Type Onset Date Status seasonal allergies (uncoded) Unknown Allergy Active Reason For Referral No Information Medications Medication SIG (Take, Route, Frequency, Duration) Notes Start Date End Date Status HYDROcodone-Acetaminophen 10-325 MG Tablet 1 tablet as needed Orally every 6 hrs Active Citalopram Hydrobromide 40 MG Tablet TAKE 1 TABLET BY MOUTH ONCE DAILY Oral; Duration: 90 Active Ketoconazole 2 % Cream 1 application Ext ernally Once a day; Duration: 14 day(s) Active MiraLax (colon prep) 17 GM/SCOOP Powder mixed with Gatorade or Crystal Light Orally begin at 5:00 p.m. the day before the procedure; Duration: 1 day 08/23/2022 Active traMADol HCl 50 MG Tablet 1 tablet as ne eded Orally Once a day Active Celecoxib 200 MG Capsule 1 capsule with food Orally Once a day; Duration: 30 day(s) Active Aspirin 81 81 MG Tablet Delayed Release 1 tablet Orally Once a day; Duration: 30 day(s) Active Pantoprazole Sodium 40 MG Tablet Delayed Release 1 tablet Orally Once a day; Duration: 30 day(s) Active Docusate Sodium 100 MG Capsule 1 capsule as needed Orally Once a day; Duration: 30 day(s) Active Immunizations Vaccine Route Administration Date Status Comme nts Influenza Unknown 08/23/2022 Refused Social History Tobacco Use: Social History Observation Description Date Details (start date - stop date) Former Smoker NA - NA Social History Drugs/Alcohol: Social Info Question Answer Notes Alcohol Screen Did you have a drink containing alcohol in the past year? Yes How often did you have a drink containing alcohol in the past year? Monthly or less (1 point) How many drinks did you have on a typical day when you were drinking in the past year? 1 or 2 drinks (0 point) How often did you have 6 or more drinks on one occasion in the past year? Never (0 point) Points 1 Interpretation Negative Tobacco Use: Social Info Question Answer Notes Tobacco Use/Smoking Patient is a former smoker How long has it been since you last smoked? 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 Problems Problem Type SNOMED Code ICD Code Onset Dates Problem Status W/U Status Risk Notes Problem Colon cancer screening (043965736) Colon cancer screening (Z12.11) Active confirmed Problem History of polyp of colon (situation) (166739712) Personal history of colonic polyps (Z86.010) Active confirmed Problem Gastroesophageal reflux disease without esophagitis (516580130) Gastroesophageal reflux disease without esophagitis (K21.9) Active confirmed Problem Right flank pain (932957137) Right flank pain (R10.9) Active confirmed Plan Of Treatment Future Test Test Name Order Date COLONOSCOPY 08/22/2017 COLONOSCOPY 08/23/2022 Insurance Providers Payer Name Payer Address Payer Phone Subscriber Number Group Number Insured Name Patient Relationship to Insured Coverage Start Date Coverage End Date [facility] [address] [place], [place] [id number] AZALIA [id number] Self - patient is the insured Medical (General) History Medical History History ICD Code gastroesophageal reflux disease depression elevated cholesterol Surgical History Surgery Date(Month/Year) tonsillectomy Left oophorectomy/partial salpingectomy, benign 08/06 shoulder surgery 2002 left hip replacement 08/14/22 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
--- OUTSIDE RECORDS SUMMARY | 2025-02-24 09:41 | XMS_ITS | Encounter Summary ---
Author Organization [facility] Address [address] [place] [address] Phone Care Team Providers Care Molasses Coloring Operator Name Role Phone Hailey Moran MD Primary Care Provider [phone] Encounter Details Date Type Department Care Team (Late st Contact Info) Description 10/04/2018 Ancillary Orders [facility], X-Ray - [address] [address] [place]ña MD [address] [place] [address] [email or web address] Pain in left hip [...] hip documented in this encounter Care Teams Molasses Coloring Operator Relationship Specialty Start Date End Date Hailey Moran MD [facility] [place] [address] PCP - General Internal Medicine 10/04/18 documented as of this encounter Additional Source Comments The information contained in this document represents components of the legal health record. It is not the complete legal health record.[facility]
--- OUTSIDE RECORDS SUMMARY | 2025-02-24 09:41 | XMS_ITS | Clinical Summary ---
Author Organization [facility] Address [address] [place] [address] Care Team Providers Care Flight Physician Name Role Phone Surinder Sierra MD Primary Care Provider [phone] Social History Tobacco Use Types Packs/Day Years [...] Depression Screening 02/27/2024 COVID-19 Vaccine (1 - 2024-2 6 season) 2024 Influenza Vaccine (#1) 2024 RSV [...] age to complete this topic Care Teams Flight Physician Relationship Specialty Start Date End Date Surinder Sierra MD [address] [place] [address] PCP - General 08/05/07
--- OUTSIDE RECORDS SUMMARY | 2025-02-24 09:41 | XMS_ITS | Encounter Summary ---
Author Organization [facility] Address [address] [place] [address] Phone Care Team Providers Care Pit Furnace Melter Name Role Phone Hailey Moran MD Primary Care Provider [phone] Encounter Details Date Type Department Care Team (Latest Contact Info) Description 01/24/2021 Transcribe Orders Virtual Department [address] [place] [address] [place] Peña MD [address] [place] [address] [email or web address] Pain in thoracic spine (Primary Dx); Cervicalgia [...] Cervicalgia documented in this encounter Care Teams Pit Furnace Melter Relationship Specialty Start Date End Date Hailey Moran MD [address] [facility] [address] [place] [address] PCP - General Internal Medicine 10/04/18 documented as of this encounter Additional Source Comments The information contained in this document represents components of the legal health record. It is not the complete legal health record.[facility]
== END 2025-02-24 09:02 | disposition home or self-care (01) ==
PROVIDERS: PCP Internal Medicine; Visit Provider Internal Medicine
DX: M85.38 Osteitis condensans, other site (principal); F33.42 Major depressive disorder, recurrent, in full remission; M15.9 Polyosteoarthritis, unspecified; F43.20 Adjustment disorder, unspecified